=== PATIENT | male | born 1965 | race Caucasian/White ===

== ENCOUNTER 2019-05-21 05:15 | Outpatient (CLI) | payer MEDICARE, MEDICAID | END 2019-05-21 05:16 | disposition critical access hospital (66) | LOC: EMS 05:15 | PROVIDERS: ATTEND Surgery | DX: R10.10 Upper abdominal pain, unspecified (principal); R11.2 Nausea with vomiting, unspecified; K92.1 Melena; R19.7 Diarrhea, unspecified | CPT/HCPCS: A0425; A0427 ==

== ENCOUNTER 2019-05-21 05:32 | Observation (INO) | payer MEDICARE, MEDICAID ==
[2019-05-21] MEDS ORDERED: PROMETHAZINE INJ 25 MG in SODIUM CHLORIDE 0.9% 50 ML IV STA (05:39)
[2019-05-21] MEDS ORDERED: SODIUM CHLORIDE 0.9% 1,000 ML IV ONE (05:39)
[2019-05-21] MEDS ORDERED: HYDROmorphone 1 MG/ML CARPUJECT IVP STA ×2 (05:39→05:48)
--- NOTE | 2019-05-21 05:46 | ED Physician Documentation ---
PD HPI ABD PAIN - Stated complaint Stated Complaint: N/V - Chief complaint Chief Complaint: Abd Pain - History obtained from History obtained from: Patient, EMS - History of Present Illness Timing - onset: Enter time (0000), Today Timing - duration: Hours Timing - details: Abrupt onset, Still present Quality: Cramping, Aching, Sharp, Pain Location: Epigastric Radiation: Upper back Improved by: Other (nothing) Worsened by: Moving, Breathing, Position, Palpation Associated symptoms: Nausea, Vomiting, Diarrhea, Other (diphoresis) Similar symptoms before: Diagnosis (diverticulitis and colitis) Recently seen: Not recently seen - Additional information Additional information: 54-year-old male with a history of colitis with hemorrhage and AAA has developed acute epigastric abdominal pain followed diaphoresis by vomiting and bloody diarrhea. He states he has had this previously twice was admitted here in 2016, needed to stay about 3 days and left AMA. He states that last year he had an episode of this and was seen at [facility] in and out of the emergency department and at [facility]. He was admitted for overnight but had 4 visits to the ED. Both of these prior episodes he has taken some antibiotic associated with this. He has not been in for follow-up colonoscopy. Tonight he had some very sharp pains and called the ambulance with concerns that he was rupturing his AAA. Review of Systems Constitutional: reports: Chills, Myalgias, Fatigue. denies: Fever Eyes: denies: Decreased vision Ears: denies: Ear pain Nose: denies: Rhinorrhea / runny nose, Congestion Throat: denies: Sore throat Cardiac: denies: Chest pain / pressure, Palpitations Respiratory: denies: Dyspnea, Cough GI: reports: Abdominal Pain, Nausea, Vomiting, Diarrhea : denies: Dysuria, Frequency Skin: denies: Rash Musculoskeletal: denies: Neck pain, Back pain Neurologic: denies: Generalized weakness, Focal weakness, Numbness PD PAST MEDICAL HISTORY - Past Medical History Cardiovascular: Hypertension, Other Respiratory: COPD, Emphysema Endocrine/Autoimmune: None GI: GERD, Cholelithiasis : Frequency HEENT: Chronic vision loss Psych: Depression, Anxiety Musculoskeletal: Osteoarthritis, Chronic back pain Derm: Other - Past Surgical History Past Surgical History: Yes General: Cholecystectomy, Colonoscopy, EGD - Present Medications Home Medications: Ambulatory Orders Medication Instructions Recorded Confirmed Omeprazole 40 mg ORAL DAILY 07/11/14 10/18/15 - Allergies Allergies/Adverse Reactions: Allergies Allergy/AdvReac Type Severity Reaction Status Date / Time acetaminophen [From Tylenol] Allergy Cramps Verified 05/21/19 05:40 morphine Allergy Rash Verified 05/21/19 05:40 gabapentin AdvReac Hallucinati Verified 03/20/15 20:32 ons - Social History Does the pt smoke?: Yes Smoking Status: Current every day smoker Does the pt drink ETOH?: No Does the pt have substance abuse?: No - Immunizations Immunizations are current?: No Immunizations: TDAP >10years/unknown, Other immun not current PD ED PE NORMAL - Vitals Vital signs reviewed: Yes (hypertensive marked) - General General: Alert and oriented X 3, Well developed/nourished, Other (54-year-old male appears to be acutely in pain he is bronzed diaphoretic he does have messenger office tone and a flattened affect and is grunting and pain.) - HEENT HEENT: Atraumatic, PERRL, EOMI, Other (no nystagmus ) - Neck Neck: Supple, no meningeal sign, No bony TTP - Cardiac Cardiac: RRR, No murmur - Respiratory Respiratory: No respiratory distress, Clear bilaterally - Abdomen Abdomen: Other (epigastric tenderness no left lower quadrant tenderness or right lower quadrant tenderness. ) - Back Back: No CVA TTP, No spinal TTP - Derm Derm: Normal color, Warm and dry, No rash - Extremities Extremities: No deformity, No edema, No calf tenderness / cord - Neuro Neuro: Alert and oriented X 3, conference director 2-12 intact, No motor deficit, No sensory deficit, Normal speech Eye Opening: Spontaneous Motor: Obeys Commands Verbal: Oriented GCS Score: 15 - Psych Psych: Normal mood, Normal affect Results - Vitals Vitals: Vital Signs - 24 hr 05/21/19 05/21/19 05/21/19 05:34 06:08 06:33 Temperature 36.5 C Heart Rate 90 74 75 Respiratory 18 18 16 Rate Blood Pressure 178/122 H 158/100 H 114/77 O2 Saturation 95 96 88 L Oxygen O2 Source Room air Oxygen Flow Rate 2 - Labs Labs: Laboratory Tests 05/21/19 05/21/19 05/21/19 05:50 05:50 05:50 WBC 15.8 H RBC 5.26 Hgb 16.7 Hct 48.3 MCV 91.8 MCH 31.7 H MCHC 34.6 RDW 13.8 Plt Count 262 MPV 11.2 Neut # (Auto) 12.3 H Lymph # (Auto) 2.1 [place] # (Auto) 0.9 Eos # (Auto) 0.3 Baso # (Auto) 0.1 Absolute Nucleated RBC 0.00 Nucleated RBC % 0.0 Sodium 139 Potassium 4.2 Chloride 110 Carbon Dioxide 19 L Anion Gap 10.0 BUN 16 Creatinine 1.0 Estimated GFR (MDRD) 78 L Glucose 147 H Lactic Acid 2.2 Calcium 9.6 Total Bilirubin 0.4 AST 27 ALT 40 Alkaline Phosphatase 78 Total Protein 7.9 Albumin 4.5 Globulin 3.4 Albumin/Globulin Ratio 1.3 Lipase 60 H Ethyl Alcohol < 5.0 - Rads (name of study) CT ab/pel with Radiology: Prelim report reviewed (Impression: 1. No acute inflammatory obstructive process seen in the abdomen or pelvis. 2 Interval enlargement of a 4.7 cm fusiform infrarenal abdominal aortic aneurysm. This previously measured 3.8 cm in 2016.3 Common iliac artery aneurysm measuring up to 2.2 cm previously 1.6 cm 4 severe atherosclerotic disease of the aorta and branches. 5 Colonic diverticulosis. 6 Chronic urinary bladder diverticula. 7 Previous ch olecystectomy. 8 Emphysema.), EMP read indepedently, See rad report PD MEDICAL DECISION MAKING - ED course Complexity details: reviewed old records, reviewed results, re-evaluated patient, considered differential, d/w patient ED course: 54 y/o male with acute abdominal pain and bloody diarrhea has improvement with dilaudid and phenergan and ativan. His prior episodes have lasted 5 days and required admission to the hospital here and in [place]. He does have a known AAA and both aneurysms have enlarged from his 2016 study. His pain appeared consistent with ishemic pain but was relieved by a single dose of dilaudid. The vascular surgeon in [place] is consulted Dr. Hwang and she indicates it is u nlikely to be related to his aneurysm and recommends he follow up as planned with anticipation of repair at 5.5cm. The rate of growth is less than 0.5cm/yr and there is no extravesation of contrast to suggest a leak. The patient will need bowel rest, IV fluids and antibiotics. His past courses indicate a need to be in the hospital for several days. The patient is amenable to admission here. Departure - Departure Disposition: [facility] DC/[place] Clinical Impression: Hematochezia, Gastroenteritis
[2019-05-21] MEDS ORDERED: IOVERSOL 320 100 ML VIAL IVP ONE ×2 (05:50→06:28)
[2019-05-21] MEDS ORDERED: LORazepam 2 MG/ML VIAL IVP STA (05:56)
[2019-05-21 05:57] LABS: BASOPHILS # (AUTO) 0.1 10^3/uL (0.0-0.1); BASOPHILS % (AUTO) 0.8 %; EOSINOPHILS # (AUTO) 0.3 10^3/uL (0.0-0.7); EOSINOPHILS % (AUTO) 1.8 %; HGB - HEMOGLOBIN 16.7 g/dL (14.0-18.0); LYMPHOCYTES # (AUTO) 2.1 10^3/uL (1.5-3.5); LYMPHOCYTES % (AUTO) 13.1 %; MEAN CORPUSCULAR HEMOGLOBIN 31.7 pg (27.0-31.0); MEAN CORPUSCULAR HGB CONC 34.6 g/dL (32.0-36.0); MEAN CORPUSCULAR VOLUME 91.8 fL (80.0-94.0); MEAN PLATELET VOLUME 11.2 fL (7.4-11.4); MONOCYTES # (AUTO) 0.9 10^3/uL (0.0-1.0); MONOCYTES % (AUTO) 5.4 %; NEUTROPHILS # (AUTO) 12.3 10^3/uL (1.5-6.6); NEUTROPHILS % (AUTO) 78.1 %; PLT - PLATELET COUNT 262 10^3/uL (130-450); RED BLOOD COUNT 5.26 10^6/uL (4.70-6.10); RED CELL DISTRIBUTION WIDTH 13.8 % (12.0-15.0); WHITE BLOOD COUNT 15.8 x10^3/uL (4.8-10.8)
[2019-05-21 06:12] LABS: ALBUMIN 4.5 g/dL (3.2-5.5); ALBUMIN/GLOBULIN RATIO 1.3 (1.0-2.2); ALKALINE PHOSPHATASE 78 IU/L (42-121); ALT ALANINE AMINOTRANSFERASE 40 IU/L (10-60); AST ASPARTATE AMINOTRANSFERASE 27 IU/L (10-42); BILIRUBIN,TOTAL 0.4 mg/dL (0.2-1.0); BUN - BLOOD UREA NITROGEN 16 mg/dL (6-20); CALCIUM 9.6 mg/dL (8.5-10.3); CARBON DIOXIDE - CO2 19 mmol/L (21-32); CHLORIDE 110 mmol/L (101-111); GFR - MDRD 78 (>89); GLUCOSE 147 mg/dL (70-100); LIPASE 60 U/L (22-51); SODIUM 139 mmol/L (135-145); TOTAL PROTEIN 7.9 g/dL (6.7-8.2)
--- NOTE | 2019-05-21 07:00 | CT Report ---
Reason: epigastric pain Procedure Date: 05/21/2019 Accession Number: [id number] / [id number] Procedure: CT - Abdomen/Pelvis W CPT Code: Final Report FULL RESULT: EXAM: CT ABDOMEN AND PELVIS EXAM DATE: 05/21/2019 06:30 AM. CLINICAL HISTORY: Epigastric pain. COMPARISONS: ABDOMEN/PELVIS ANGIO 10/17/2015 4:48 PM. TECHNIQUE: Routine helical CT imaging was performed through the abdomen and pelvis. IV contrast: Yes . Enteric contrast: No . Reconstructions: Coronal and sagittal. In accordance with CT protocol optimization, one or more of the following dose reduction techniques were utilized for this exam: automated exposure control, adjustment of mA and/or KV based on patient size, or use of iterative reconstructive technique. FINDINGS: Lung Bases: Emphysematous changes noted. Liver: Unremarkable. No suspicious masses. Gallbladder/Bile Ducts: Unremarkable post cholecystectomy. Spleen: Unremarkable. Pancreas: Unremarkable. Adrenal Glands: Unremarkable. Kidneys: Unremarkable. No suspicious masses or hydronephrosis. Peritoneal Cavity/Bowel: No bowel obstruction or inflammatory process seen. No free air or significant free fluid. No masses or adenopathy. The appendix is normal. No excessive stool burden. Colonic diverticulosis. Pelvic Organs: Bladder and prostate appear unremarkable with the exception of a couple of bladder diverticula measuring up to 4 cm posteriorly. Vasculature: Severe atherosclerotic disease of the aorta and branches. Interval enlargement of a fusiform infrarenal abdominal aortic aneurysm measuring up to 47 x 46 mm in cross section and extending approximately 9 cm in craniocaudal dimension. Maximum diameter previously was 38 x 38 mm when measured at a similar level. Right common iliac artery aneurysm measures up to 2.2 cm, previously 1.6 cm. Bones: No significant abnormality. Other: None. IMPRESSION: 1. No acute inflammatory or obstructive process seen in the abdomen or pelvis. 2. Interval enlargement of a 4.7 cm fusiform infrarenal abdominal aortic aneurysm. This previously measured 3.8 cm in 2016. 3. Right common iliac artery aneurysm measures up to 2.2 cm, previously 1.6 cm. 4. Severe atherosclerotic disease of the aorta and branches. 5. Colonic diverticulosis. 6. Chronic urinary bladder diverticula. 7. Previous cholecystectomy. 8. Emphysema. RADIA
[2019-05-21] MEDS ORDERED: SODIUM CHLORIDE FLUSH 0.9% 10 ML SYRINGE IVP PRN (08:03)
[2019-05-21] MEDS ORDERED: SODIUM CHLORIDE 0.9% 1,000 ML IV SCH (10:00)
[2019-05-21] MEDS: SODIUM CHLORIDE FLUSH 0.9% 10 ML SYRINGE IVP SCH ×2 (10:55→17:29)
[2019-05-21] MEDS: HYDROmorphone 2 MG/ML VIAL IVP PRN ×4 (10:56→14:12)
[2019-05-21 11:06] LABS: BILIRUBIN,URINE NEGATIVE (NEGATIVE); CLARITY,URINE CLEAR (CLEAR); GLUCOSE, URINE (UA) NEGATIVE (NEGATIVE); KETONES,URINE (UA) NEGATIVE (NEGATIVE); LEUKOCYTE ESTERASE, URINE NEGATIVE (NEGATIVE); NITRITE,URINE NEGATIVE (NEGATIVE); OCCULT BLOOD,URINE NEGATIVE (NEGATIVE); PH,URINE 5.5 PH (5.0-7.5); PROTEIN,URINE NEGATIVE (NEGATIVE); UROBILINOGEN,URINE 0.2 (NORMAL) E.U./dL (NORMAL)
--- NOTE | 2019-05-21 12:39 | HISTORY & PHYSICAL EXAMINATION ---
Chief Complaint - Chief Complaint Chief Complaint: blood diarrhea, rigors, nausea, vomiting, abdominal pain Abdominal Pain HPI - Admitted From Admitted from: ED - History Obtained From Records Reviewed: RN notes reviewed, Old records reviewed History obtained from: Patient Exam limitations: Clinical condition - History of Present Illness Pain/Problem Location Description: LUQ abdominal pain, bilateral low abdominal pain Severity at the worst: Severe Pain Quality: Sharp, Throbbing, Other (waves of pain, LUQ pain travels through his body to his back, worse with deep palpation) Context-Pain started w/: Eating, Movement Timing: Abrupt onset Duration: Days: (1) Improved with: Nothing Worsened by: Eating, Movement, Palpation, Nothing Associated symptoms: Nausea, Vomiting, Feeling faint / dizzy, General Weakness, Other (bloody diarrhea) HPI Comment/Other: Nathan Landaverde is a 54-year old male with a past medical history of hypertension, cardiac stress testing, chronic migraines, sinusitis, current smoker since age 16, marijuana dependence, abdominal aortic aneurysm, COPD with emphysema, arthritis, generalized anxiety disorder, depression and nocturia. The patient was brought in via EMS this morning with complaints of bilateral upper abdominal pain, nausea, vomiting, diarrhea, diaphoresis, and shivering. The patient states that he was in his normal state of health yesterday, then developed acute abdominal pain. He asked if pizza sauce may have discolored his stool, but explained that it seemed like a large amount, then vomited. Labs showed an elevated WBC count of 15.8, GFR of 78, and a negative troponin of less than 2.3. He was afebrile with normal vital signs (although initial blood pressure readings were elevated at 158/100). Imaging was negative for diverticulitis. He continued to have intractable abdominal pain in the LUQ and bilateral lower quadrants with ongoing nausea upon my exam that was unrelieved despite IV diluadid and anti-emetics. He will be admitted for observation as he has had acute diverticulitis in the past. 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 : positive: Benign prostate hypertrophy, Nocturia, Frequency HEENT: positive: Chronic vision loss, Chronic sinusitis, Chronic hearing loss Psych: positive: Depression, Anxiety, Panic attacks, Other (previously suicidal when in his 20's, generalized anxiety disorder) Musculoskeletal: positive: Osteoarthritis, Fatigue, Chronic back pain Derm: positive: None MRSA Hx?: No Other Past Medical History: abdominal aortic aneurysm - Past Surgical History General: positive: Cholecystectomy, Colonoscopy (2015), EGD Ortho: positive: Shoulder arthroplasty (left) Cardiovascular: positive: Other (cardiac stress testing) Other past surgical history: Left hip lipoma removal 4 years ago Social & Family Hx - Living Situation Living Arrangement: At home Living Situation: Alone (Has a dog) - Social History Does the pt smoke?: Yes Smoking Status: Current every day smoker Does the pt drink ETOH?: No Does the pt have substance abuse?: Yes Substance Use and Type: Marijuana Additional Social History: 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 [place] The patient has had close family members in the past several years and suffers from mood disorders, depre ssion, anxiety and is not currently seeing a therapist for these disorders. He denies alcohol use, illicit drug use. He admits to smoking marijuana, tobacco since age 16, although he is trying to quit. He wishes to be a full code. - POLST Patient has POLST: No POLST Status: Full Code - Family History Family History: Mother: , Alzheimer's Disease, Father: , Cancer, Sister: , Brother: Family History Comment/Other: Mother after complications from dementia, father in 2013 after battling lung cancer, sister unexpectedly suspected from broken heart syndrome. Patient has 3 children who live in [place] who are alive and well. Meds/Allgy - Home Medications Home Medications: Ambulatory Orders Medication Instructions Recorded Confirmed Omeprazole 40 mg ORAL DAILY 07/11/14 10/18/15 metFORMIN [Glucophage] 500 mg PO BIDWM #30 tablet 05/21/19 - Allergies Allergies/Adverse Reactions: Allergies Allergy/AdvReac Type Severity Reaction Status Date / Time acetaminophen [From Tylenol] Allergy Cramps Verified 05/21/19 05:40 morphine Allergy Rash Verified 05/21/19 05:40 gabapentin AdvReac Hallucinati Verified 03/20/15 20:32 ons Prior Level of Functionality: Lives independently, has a dog, attends outpatient PT Exam - Vital Signs Reviewed Vital Signs: Yes Vital Signs: Vital Signs x48h Temp Pulse Pulse Resp BP BP Pulse Ox 05/21/19 09:00 36.6 C 77 16 130/75 95 05/21/19 08:27 77 92 H 108/95 H 92 05/21/19 06:33 75 16 114/77 88 L 05/21/19 06:08 74 18 158/100 H 96 05/21/19 05:34 36.5 C 90 18 178/122 H 95 - Physical Exam General Appearance: positive: Alert, Mild distress, Anxious Eyes Bilateral: positive: PERRL, No lid inflammation ENT: positive: Pharynx nml, Dry mucous membranes Neck: positive: Thyroid nml, No JVD Respiratory: positive: Chest non-tender, No respiratory distress, Breath sounds nml Cardiovascular: positive: Regular rate & rhythm, No gallop, Systolic murmur Peripheral Pulses: positive: 2+ Abdomen: positive: Tenderness (LUQ sharp, goes through his body to his back), Guarding, Hepatomegaly, Abnml bowel sounds (hypoactive) Back: positive: Nml inspection Skin: positive: Color nml, No rash, Warm, Dry, Other (tattoos) Extremities: positive: Non-tender, Full ROM, No pedal edema, Joint swelling (Chronic, left shoulder with decreased ROM) Neurologic/Psychiatric: positive: Oriented x3, CN's nml (2-12), Motor nml, Sensation nml, Weakness, Sensory loss, Depressed mood/affect (Mood disorder since 11th grade when his girl friend ) Reflexes: Bicep (R): 3+, Bicep (L): 3+, Ankle (R): 3+, Ankle (L): 3+ Results - Lab Results Lab results reviewed: Yes Fish Bones: 05/21/19 15:59 05/21/19 15:59 Other Lab Results: Lab Results x24hrs 05/21/19 05/21/19 05/21/19 Range/Units 11:00 05:50 05:50 WBC (4.8-10.8) x10^3/uL RBC (4.70-6.10) 10^6/uL Hgb (14.0-18.0) g/dL Hct (42.0-52.0) % MCV (80.0-94.0) fL MCH (27.0-31.0) pg MCHC (32.0-36.0) g/dL RDW (12.0-15.0) % Plt Count (130-450) 10^3/uL MPV (7.4-11.4) fL Neut # (Auto) (1.5-6.6) 10^3/uL Lymph # (Auto) (1.5-3.5) 10^3/uL [place] # (Auto) (0.0-1.0) 10^3/uL Eos # (Auto) (0.0-0.7) 10^3/uL Baso # (Auto) (0.0-0.1) 10^3/uL Absolute Nucleated RBC x10^3/uL Nucleated RBC % /100WBC Sodium 139 (135-145) mmol/L Potassium 4.2 (3.5-5.0) mmol/L Chloride 110 (101-111) mmol/L Carbon Dioxide 19 L (21-32) mmol/L Anion Gap 10.0 (6-13) BUN 16 (6-20) mg/dL Creatinine 1.0 (0.6-1.2) mg/dL Estimated GFR (MDRD) 78 L (>89) Glucose 147 H (70-100) mg/dL Lactic Acid 2.2 (0.5-2.2) mmol/L Calcium 9.6 (8.5-10.3) mg/dL Total Bilirubin 0.4 (0.2-1.0) mg/dL AST 27 (10-42) IU/L ALT 40 (10-60) IU/L Alkaline Phosphatase 78 (42-121) IU/L Total Protein 7.9 (6.7-8.2) g/dL Albumin 4.5 (3.2-5.5) g/dL Globulin 3.4 (2.1-4.2) g/dL Albumin/Globulin Ratio 1.3 (1.0-2.2) Lipase 60 H (22-51) U/L Urine Color YELLOW Urine Clarity CLEAR (CLEAR) Urine pH 5.5 (5.0-7.5) PH Ur Specific [place] 1.015 (1.002-1.030) Urine Protein NEGATIVE (NEGATIVE) mg/dL Urine Glucose (UA) NEGATIVE (NEGATIVE) mg/dL Urine Ketones NEGATIVE (NEGATIVE) mg/dL Urine Occult Blood NEGATIVE (NEGATIVE) Urine Nitrite NEGATIVE (NEGATIVE) Urine Bilirubin NEGATIVE (NEGATIVE) Urine Urobilinogen 0.2 (NORMAL) (NORMAL) E.U./dL Ur Leukocyte Esterase NEGATIVE (NEGATIVE) Ur Microscopic Review NOT INDICATED Urine Culture Comments NOT INDICATED Ethyl Alcohol < 5.0 mg/dL 05/21/19 Range/Units 05:50 WBC 15.8 H (4.8-10.8) x10^3/uL RBC 5.26 (4.70-6.10) 10^6/uL Hgb 16.7 (14.0-18.0) g/dL Hct 48.3 (42.0-52.0) % MCV 91.8 (80.0-94.0) fL MCH 31.7 H (27.0-31.0) pg MCHC 34.6 (32.0-36.0) g/dL RDW 13.8 (12.0-15.0) % Plt Count 262 (130-450) 10^3/uL MPV 11.2 (7.4-11.4) fL Neut # (Auto) 12.3 H (1.5-6.6) 10^3/uL Lymph # (Auto) 2.1 (1.5-3.5) 10^3/uL [place] # (Auto) 0.9 (0.0-1.0) 10^3/uL Eos # (Auto) 0.3 (0.0-0.7) 10^3/uL Baso # (Auto) 0.1 (0.0-0.1) 10^3/uL Absolute Nucleated RBC 0.00 x10^3/uL Nucleated RBC % 0.0 /100WBC Sodium (135-145) mmol/L Potassium (3.5-5.0) mmol/L Chloride (101-111) mmol/L Carbon Dioxide (21-32) mmol/L Anion Gap (6-13) BUN (6-20) mg/dL Creatinine (0.6-1.2) mg/dL Estimated GFR (MDRD) (>89) Glucose (70-100) mg/dL Lactic Acid (0.5-2.2) mmol/L Calcium (8.5-10.3) mg/dL Total Bilirubin (0.2-1.0) mg/dL AST (10-42) IU/L ALT (10-60) IU/L Alkaline Phosphatase (42-121) IU/L Total Protein (6.7-8.2) g/dL Albumin (3.2-5.5) g/dL Globulin (2.1-4.2) g/dL Albumin/Globulin Ratio (1.0-2.2) Lipase (22-51) U/L Urine Color Urine Clarity (CLEAR) Urine pH (5.0-7.5) PH Ur Specific [place] (1.002-1.030) Urine Protein (NEGATIVE) mg/dL Urine Glucose (UA) (NEGATIVE) mg/dL Urine Ketones (NEGATIVE) mg/dL Urine Occult Blood (NEGATIVE) Urine Nitrite (NEGATIVE) Urine Bilirubin (NEGATIVE) Urine Urobilinogen (NORMAL) E.U./dL Ur Leukocyte Esterase (NEGATIVE) Ur Microscopic Review Urine Culture Comments Ethyl Alcohol mg/dL - Diagnostic Imaging Results Diagnostic Imaging Results: positive: Final report reviewed Impression/Plan - Problem List Problem List: Acute abdominal pain -LLQ & LUQ pain which comes in waves, sharp, shooting, and ongoing despite NPO -Prior history of diverticulosis, prior admissions for diverticulitis -Elevated WBC count of 15.8, now normal at 9.7 -CRP was normal at 7.5 -No fevers, but reports of rigors, nausea, vomiting, and bloody diarrhea prior to arriving in the ED -Differential diagnoses include: IBS, colorectal cancer, appendicitis, infectious colitis, ischemic colitis, or nephrolithiasis -Single view abdominal x-ray to evaluate for free air, or evidence of diverticulitis (inflammation) -Patient has known noncompliance, so would likely return to the ED if not admitted for at least 1 night of stay -Consider starting IV antibiotics if the patient develops fevers or WBC count -May consult general surgery if warranted Bloody diarrhea -Patient questions if eating pizza sauce may have caused his stool to appear red -NO further episodes since arriving on the nursing floor Intractable nausea and vomiting -Started at home, continued in the ED despite anti-emetics -Continue NPO, consider clear liquids later tonight Diverticulosis -Known history, per records review -No evidence on imaging of acute diverticulitis New onset type 2 diabetes mellitus -Patient states he has a prominent family history of DM -Hemoglobin A1C was elevated at 6.3% -Nutrition consult for counseling while in the hospital -Likely start Metformin upon discharge Abdominal aortic aneurysm (AAA) 3.0 cm to 5.5 cm in diameter in male -Current measurement of 4.7, up from 3.8 previously -Patient states he gets "freaked out" when he feels like he can hear it in his abdomen, shooting down his legs -Vascular surgery was called by ED physician, who does not recommend surgical repair at this time Nocturia -Patient states he gets up 4-6 times per night -Start flomax in the AM, prescribe for home use Leukocytosis -Elevated WBC count of 15.8, now normal at 9.7 Hypertension -No antihypertensives at home -Starting lisinopril at 2.5 mg if appropriate for new DM diagnosis History of traumatic brain injury -Patient claims that he fell off a ladder a few years back, striking his head -Short term memory loss since that time -Monitor mental status Arthritis -Multiple joints with chronic pain -Recently had his left shoulder surgery, continues with outpatient PT Migraines -Nearly every day, contributes to anxiety disorder -Treat with pain medication, monitor Tobacco dependence -Life long smoker since age 16 -Patient states he is "trying to stop smoking" -Nicotine patch only as needed -Suggest pulmonary rehab on discharge Marijuana dependence -Patient states he uses this for his arthritis pain and chronic anxiety Generalized anxiety disorder -Patient states that after his girlfriend in high school unexpectedly , he has had an anxiety disorder -Also has had family pass away lately -Does not have a therapist -Recommend establishing a therapist upon discharge Core Measures - Anticipated LOS I expect patient to be DC'd or transferred within 96 hours.: Yes - DVT/VTE - Prophylaxis VTE/DVT Device ordered at admit?: Yes VTE/DVT Prophylaxis med ordered at admit?: Yes - Stroke - Rehab Assessment Rehab services assessment to be ordered?: No Not Ordered - Medical Reason: Contraindicated - AMI - Statin at Admit Aspirin Prescribed on Admit: No Not Ordered - Medical Reason: Contraindicated
[2019-05-21] MEDS ORDERED: NICOTINE 14 MG PATCH TOP PRN (14:42)
[2019-05-21] MEDS ORDERED: ONDANSETRON 4 MG/2 ML VIAL IVP PRN (14:43)
[2019-05-21] MEDS ORDERED: PANTOPRAZOLE 40 MG VIAL IVP SCH (15:00)
--- NOTE | 2019-05-21 15:53 | XRAY Report ---
Reason: diverticulitis Procedure Date: 05/21/2019 Accession Number: [id number] / [id number] Procedure: XR - Abdomen 1 View X-Ray CPT Code: 08029 Final Report FULL RESULT: EXAM: ABDOMEN RADIOGRAPHY EXAM DATE: 05/21/2019 03:20 PM. CLINICAL HISTORY: Diverticulitis. COMPARISON: ABDOMEN/PELVIS W/ 05/21/2019 6:21 AM. TECHNIQUE: 1 view. FINDINGS: Bowel Gas Pattern: Within normal limits. No dilated loops. Other: Surgical clips in right upper quadrant, suggestive of post cholecystectomy. Excreted contrast is seen within the urinary bladder in the pelvis. Two small bladder diverticula noted containing excreted contrast. IMPRESSION: No suggestion of bowel obstruction or pneumoperitoneum. RADIA
[2019-05-21 16:06] LABS: BASOPHILS # (AUTO) 0.1 10^3/uL (0.0-0.1); BASOPHILS % (AUTO) 0.8 %; EOSINOPHILS # (AUTO) 0.4 10^3/uL (0.0-0.7); EOSINOPHILS % (AUTO) 4.2 %; HGB - HEMOGLOBIN 15.2 g/dL (14.0-18.0); LYMPHOCYTES # (AUTO) 3.2 10^3/uL (1.5-3.5); LYMPHOCYTES % (AUTO) 32.6 %; MEAN CORPUSCULAR HEMOGLOBIN 31.2 pg (27.0-31.0); MEAN CORPUSCULAR HGB CONC 33.3 g/dL (32.0-36.0); MEAN CORPUSCULAR VOLUME 93.6 fL (80.0-94.0); MEAN PLATELET VOLUME 11.4 fL (7.4-11.4); MONOCYTES # (AUTO) 0.8 10^3/uL (0.0-1.0); MONOCYTES % (AUTO) 7.8 %; NEUTROPHILS # (AUTO) 5.3 10^3/uL (1.5-6.6); NEUTROPHILS % (AUTO) 54.1 %; PLT - PLATELET COUNT 229 10^3/uL (130-450); RED BLOOD COUNT 4.87 10^6/uL (4.70-6.10); RED CELL DISTRIBUTION WIDTH 14.1 % (12.0-15.0); WHITE BLOOD COUNT 9.7 x10^3/uL (4.8-10.8)
[2019-05-21 16:29] LABS: CALCIUM 8.6 mg/dL (8.5-10.3); CRP HIGH SENSITIVITY 7.5 mg/L
[2019-05-21 16:33] LABS: HB2 TOTAL 15.6 g/dL; HEMOGLOBIN A1C 0.71 g/dL; HEMOGLOBIN A1C % 6.3 % (4.6-6.2)
--- NOTE | 2019-05-21 19:52 | DISCHARGE SUMMARY ---
Discharge Summary Admit Date: 05/21/19 Discharge Date: 05/21/19 Condition at Discharge: Stable Discharge Disposition: 01 Home, Self Care Discharge Facility Name: [facility] - DIAGNOSES Admission Diagnoses: 1. Acute abdominal pain 2. Bloody diarrhea 3. Intractable nausea and vomiting 4. Diverticulosis 5. New onset Type 2 Diabetes mellitus 6. Abdominal aortic aneurysm (AAA) 3.0 cm to 5.5 cm in diameter in male 7. Nocturia 8. Hypertension 9. History of traumatic brain injury 10. Arthritis 11. Migraines 12. Tobacco dependence 13. Marijuana dependence 14. Generalized anxiety disorder Discharge Diagnoses with Status of Each Condition: 1. Acute abdominal pain: Resolved 2. Bloody diarrhea: Resolved 3. Intractable nausea and vomiting: Resolved 4. Diverticulosis: History of. 5. New onset Type 2 Diabetes mellitus: On going 6. Abdominal aortic aneurysm (AAA) 3.0 cm to 5.5 cm in diameter in male: Currently 4.7cm from 3.8 previously 7. Nocturia: Chronic 8. Hypertension: Chronic 9. History of traumatic brain injury 10. Arthritis: Chronic 11. Migraines: Chronic 12. Tobacco dependence: Chronic 13. Marijuana dependence: Chronic 14. Generalized anxiety disorder: Chronic - HPI History of Present Illness: Per H&P note: Nathan Landaverde is a 54-year old male with a past medical history of hypertension, cardiac stress testing, chronic migraines, sinusitis, current smoker since age 16, marijuana dependence, abdominal aortic aneurysm, COPD with emphysema, arthritis, generalized anxiety disorder, depression and nocturia. The patient was brought in via EMS this morning with complaints of bilateral upper abdominal pain, nausea, vomiting, diarrhea, diaphoresis, and shivering. The patient states that he was in his normal state of health yesterday, then developed acute abdominal pain. He asked if pizza sauce may have discolored his stool, but explained that it seemed like a large amount, then vomited. Labs showed an elevated WBC count of 15.8, GFR of 78, and a negative troponin of less than 2.3. He was afebrile with normal vital signs (although initial blood pressure readings were elevated at 158/100). Imaging was negative for diverticulitis. He continued to have intractable abdominal pain in the LUQ and b ilateral lower quadrants with ongoing nausea upon my exam that was unrelieved despite IV diluadid and anti-emetics. He will be admitted for observation as he has had acute diverticulitis in the past. - HOSPITAL COURSE Hospital Course: Patient's hemoglobin remained steady. He did not experience any more bloody diarrhea or abdominal pain HgA1C was 6.3. As a result he was discharged home with metformin 500mg po bid to take with meal. He has an appointment with his primary care physician on 05/22/19 and is expected to keep the appointment. It is expected that his PCP will assume management of his diabetes. He has had 3 colonoscopies since age 49 for blood in stool. Polyps were found. He is due for a GI follow up. It is expected that his PCP will set up follow up. - ALLERGIES Allergies/Adverse Reactions: Allergies Allergy/AdvReac Type Severity Reaction Status Date / Time acetaminophen [From Tylenol] Allergy Cramps Verified 05/21/19 05:40 morphine Allergy Rash Verified 05/21/19 05:40 gabapentin AdvReac Hallucinati Verified 03/20/15 20:32 ons - MEDICATIONS Home Medications: Ambulatory Orders Medication Instructions Recorded Confirmed Omeprazole 40 mg ORAL DAILY 07/11/14 10/18/15 metFORMIN [Glucophage] 500 mg PO BIDWM #30 tablet 05/21/19 Tamsulosin [Flomax] 0.4 mg PO DAILY #30 05/22/19 - PHYSICAL EXAM AT DISCHARGE General Appearance: positive: No acute distress, Alert Eyes Bilateral: positive: Normal inspection, PERRL, EOMI ENT: positive: ENT inspection nml, No signs of dehydration Neck: positive: Nml inspection, No JVD, Trachea midline Respiratory: positive: Chest non-tender, No respiratory distress, Breath sounds nml. negative: Wheezes, Rales, Rhonchi Cardiovascular: positive: Regular rate & rhythm, No murmur Abdomen: positive: Non-tender, No organomegaly, Nml bowel sounds, No distention. negative: Guarding, Rebound Skin: positive: Color nml, No rash, Warm Extremities: positive: Non-tender, Full ROM, Nml appearance Neurologic/Psychiatric: positive: Oriented x3, CN's nml (2-12), Motor nml, Sensation nml, Mood/affect nml - LABS Result Diagrams: 05/21/19 15:59 05/21/19 15:59 - FOLLOW UP Follow Up: With PCP on 05/22/2019 - TIME SPENT Time Spent in Discharge (Minutes): 31
--- NOTE | 2019-05-21 19:56 | Discharge Plan ---
Discharge Plan Problem Reviewed?: Yes Disposition: Home, Self Care Condition: Stable Prescriptions: metFORMIN [Glucophage] 500 mg PO BIDWM #30 tablet Diet: Diabetic Activity Restrictions: Activity as Tolerated Shower Restrictions: No Driving Restrictions: No Health Concerns: 1. Acute Abdominal Pain: Resolved. 2. Blood Diarrhea: Resolved. 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 Type 2 Diabetes Mellitus. New Onset. Metformin ordered. Follow up with primary care doctor to continue management and for diabetic education Abdominal Aortic Aneurysm: Currently 4.7cm. Continued monitoring per vascular surgery. No intervention at the moment. Plan of Treatment: 1. Acute Abdominal Pain: Resolved. 2. Blood Diarrhea: Resolved. 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 Type 2 Diabetes Mellitus. New Onset. Metformin ordered. Follow up with primary care doctor to continue management and for diabetic education Abdominal Aortic Aneurysm: Currently 4.7cm. Continued monitoring per vascular surgery. No intervention at the moment. Care Goals: 1. Acute Abdominal Pain: Resolved. 2. Blood Diarrhea: Resolved. 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 Type 2 Diabetes Mellitus. New Onset. Metformin ordered. Follow up with primary care doctor to continue management and for diabetic education Abdominal Aortic Aneurysm: Currently 4.7cm. Continued monitoring per vascular surgery. No intervention at the moment. Assessment: I discussed with patient the potential of recurrence. He reports that he is scheduled to see his primary doctor in the morning and will follow up. He is also due for a colonoscopy. Patient expressed understanding. No Smoking: If you smoke, Please STOP! Call for help. Follow-up with: DONNA KELLEY DO [Primary Care Provider] -
[2019-05-21 20:23] VITALS: BP 150/85
[2019-05-22] MEDS ORDERED: PANTOPRAZOLE 40 MG TABLET PO SCH (07:00)
[2019-05-22] MEDS ORDERED: TAMSULOSIN 0.4 MG CAPSULE PO SCH (09:00)
--- NOTE | 2019-05-22 16:10 | MISCELLANEOUS PROVIDER NOTE ---
Miscellaneous Provider Note - - Note: The patient was called at home today regarding his symptoms and to ask what pharmacy to send Flomax to, but the patient prefers to see his PCP on 05/23/2019 to address that. He states that he is fairing well, although has not eaten much due to mild nausea. He denies any further symptoms or bloody diarrhea. TORIN Vargas 05/22/2019 @ 4:09 PM
== END 2019-05-21 20:40 | disposition home or self-care (01) ==
LOC: EDUNIT# → ED 05:32 → MS2 08:03
PROVIDERS: ADMIT Nurse Practitioner; ATTEND Nurse Practitioner
DX: R10.9 Unspecified abdominal pain (principal); K92.1 Melena; R11.2 Nausea with vomiting, unspecified; Z87.19 Personal history of other diseases of the digestive system; E11.9 Type 2 diabetes mellitus without complications; I71.4 Abdominal aortic aneurysm, without rupture; N40.1 Benign prostatic hyperplasia with lower urinary tract symptoms; R35.1 Nocturia; I10 Essential (primary) hypertension; Z87.820 Personal history of traumatic brain injury; R41.3 Other amnesia; D72.829 Elevated white blood cell count, unspecified; M89.49 Other hypertrophic osteoarthropathy, multiple sites; F17.210 Nicotine dependence, cigarettes, uncomplicated; G43.809 Other migraine, not intractable, without status migrainosus; F41.9 Anxiety disorder, unspecified; F12.20 Cannabis dependence, uncomplicated; J43.9 Emphysema, unspecified; F32.9 Major depressive disorder, single episode, unspecified
CPT/HCPCS: 36415; 74018; 74177; 80048; 80053; 81003; 83036; 83605; 83690; 84443; 84484; 85025; 86141; 96361; 96365; 96375; 96376; 99285; 99406; G0378; J1170; J2060; J7040; Q9967; 80320; 81001; 87086

== ENCOUNTER 2019-08-03 07:43 | Outpatient (CLI) | payer MEDICARE, MEDICAID | END 2019-08-03 07:44 | disposition critical access hospital (66) | LOC: EMS 07:43 | PROVIDERS: ATTEND Surgery | DX: R10.9 Unspecified abdominal pain (principal) | CPT/HCPCS: A0425; A0427 ==

== ENCOUNTER 2019-08-03 08:00 | Emergency (ER) | payer MEDICARE, MEDICAID ==
[2019-08-03] MEDS ORDERED: HYDROmorphone 1 MG/ML SYRINGE IVP STA (08:11)
[2019-08-03] MEDS ORDERED: SODIUM CHLORIDE 0.9% 1,000 ML IV ONE (08:11)
--- NOTE | 2019-08-03 08:13 | ED Physician Documentation ---
PD HPI ABD PAIN - Stated complaint Stated Complaint: ABD PX - Chief complaint Chief Complaint: Abd Pain - History obtained from History obtained from: Patient - History of Present Illness Timing - onset: Today Timing - duration: Hours (4.5) Timing - details: Gradual onset Pain level now: 8 Quality: Pain Location: Epigastric, LUQ Worsened by: No: Breathing Associated symptoms: Nausea, Vomiting. No: Fever, Diarrhea, Constipation, Dysuria Similar symptoms before: Diagnosis (Diverticulitis, pancreatitis and known AAA) - Additional information Additional information: Is a 54-year-old man who presents with the onset of epigastric abdominal pain proximately 0330 This morning that has been gradually getting worse until it is now an 8 out of 10. He did not take anything at home for the pain but he called EMS and they did give him fentanyl and Zofran in route. He still complaining of 8 out of 10 pain. He started vomiting at home last was about 1/2-hour before he called 911. Denies any diarrhea or prior abdominal surgeries. No fever. Patient has a known AAA that was last monitored May of this year in [place]. He does report pain radiating down his legs but says that that is chronic from his back. He denies any difficulty with urination. He has had some nasal congestion related to pollens but has not felt ill. No sore throat no coughing. Denies use of alcohol for the past 20 years but does admit to smoking marijuana. Patient is on disability due to his back. Review of Systems Constitutional: denies: Fever Eyes: reports: Other (No acute visual changes) Ears: denies: Ear pain Nose: reports: Congestion Throat: denies: Sore throat Cardiac: denies: Chest pain / pressure Respiratory: denies: Dyspnea, Cough GI: reports: Abdominal Pain, Abdominal Swelling, Vomiting. 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 : Benign prostate hypertrophy, Nocturia, Frequency HEENT: Chronic vision loss, Chronic sinusitis, Chronic hearing loss Psych: Depression, Anxiety, Panic attacks, Other (previously suicidal when in his 20's, generalized anxiety disorder) Musculoskeletal: Osteoarthritis, Fatigue, Chronic back pain Derm: None - Past Surgical History Past Surgical History: Yes General: Cholecystectomy, Colonoscopy (2015), EGD Ortho: Shoulder arthroplasty (left) Cardiovascular: Other (cardiac stress testing) - Present Medications Home Medications: Ambulatory Orders Medication Instructions Recorded Confirmed Omeprazole 40 mg ORAL DAILY 07/11/14 10/18/15 metFORMIN [Glucophage] 500 mg PO BIDWM #30 tablet 05/21/19 Tamsulosin [Flomax] 0.4 mg PO DAILY #30 05/22/19 - Allergies Allergies/Adverse Reactions: Allergies Allergy/AdvReac Type Severity Reaction Status Date / Time acetaminophen [From Tylenol] Allergy Cramps Verified 08/03/19 08:09 morphine Allergy Rash Verified 08/03/19 08:09 gabapentin AdvReac Hallucinati Verified 08/03/19 08:09 ons - Social History Does the pt smoke?: Yes Smoking Status: Current every day smoker Does the pt drink ETOH?: No Does the pt have substance abuse?: Yes - Immunizations Immunizations are current?: No Immunizations: TDAP >10years/unknown, Other immun not current - POLST Patient has POLST: No POLST Status: Full Code PD ED PE NORMAL - Vitals Vital signs reviewed: Yes - General General: Alert and oriented X 3, Well developed/nourished, Other (Laying on his back on the exam stretcher gripping at his stomach writhing back and forth and groaning in pain.) - HEENT HEENT: PERRL, Moist mucous membranes - Cardiac Cardiac: RRR, No murmur, Strong equal pulses - Respiratory Respiratory: No respiratory distress - Abdomen Abdomen: Soft, Other (Decreased bowel sounds. There is tenderness and some guarding in the left lower quadrant. I do not feel a definite pulsatile mass.) - Derm Derm: Other (Diaphoretic) - Extremities Extremities: No edema - Neuro Neuro: Alert and oriented X 3, lvn 2-12 intact, No motor deficit, No sensory deficit, Normal speech Results - Vitals Vitals: Vital Signs - 24 hr 08/03/19 08/03/19 08/03/19 08:04 08:10 09:11 Temperature 36.5 C Heart Rate 102 H 99 71 Respiratory 18 22 16 Rate Blood Pressure 163/109 H 108/76 O2 Saturation 95 98 99 08/03/19 08/03/19 10:23 10:52 Temperature 36.7 C Heart Rate 70 72 Respiratory 16 16 Rate Blood Pressure 110/74 120/75 O2 Saturation 99 99 Oxygen O2 Source Room air - Labs Labs: Laboratory Tests 08/03/19 08/03/19 08/03/19 08:17 08:17 10:10 WBC 12.3 H RBC 5.07 Hgb 16.3 Hct 47.2 MCV 93.1 MCH 32.1 H MCHC 34.5 RDW 13.6 Plt Count 255 MPV 11.6 H Neut # (Auto) 8.6 H Lymph # (Auto) 2.1 [place] # (Auto) 0.9 Eos # (Auto) 0.5 Baso # (Auto) 0.1 Absolute Nucleated RBC 0.00 Nucleated RBC % 0.0 Sodium 136 Potassium 4.3 Chloride 105 Carbon Dioxide 22 Anion Gap 9.0 BUN 18 Creatinine 1.1 Estimated GFR (MDRD) 69 L Glucose 112 H Calcium 9.1 Total Bilirubin 0.5 AST 19 ALT 21 Alkaline Phosphatase 66 Total Protein 7.5 Albumin 4.3 Globulin 3.2 Albumin/Globulin Ratio 1.3 Lipase 57 H Urine Color YELLOW Urine Clarity CLEAR Urine pH 5.5 Ur Specific [place] 1.025 Urine Protein NEGATIVE Urine Glucose (UA) NEGATIVE Urine Ketones NEGATIVE Urine Occult Blood NEGATIVE Urine Nitrite NEGATIVE Urine Bilirubin NEGATIVE Urine Urobilinogen 0.2 (NORMAL) Ur Leukocyte Esterase NEGATIVE Ur Microscopic Review NOT INDICATED Urine Culture Comments NOT INDICATED PD MEDICAL DECISION MAKING - ED course Complexity details: reviewed old records ( ) ED course: 1017: Nurse approached me regarding patient having more pain. Toradol ordered. Patient reports to me not only the increase in the pain but also more nausea. Have also ordered Phenergan. 1145: Patient reports that his pain is significantly improved it still a 4 out of 10 but he says he lives in chronic pain in his abdomen and this is actually better than his normal pain. No evidence of acute surgical abdomen and he is ready to be discharged. Departure - Departure Disposition: 01 Home, Self Care Clinical Impression: Abdominal pain Qualifiers: Abdominal location: epigastric Qualified Code(s): R10.13 - Epigastric pain Condition: Good Instructions: ED Abdominal Pain Unkn Cause Follow-Up: DONNA KELLEY DO [Primary Care Provider] - Comments: Eat a mild diet today. Follow-up with your primary care provider about the chronic abdominal pain or return if her symptoms are worsening.
[2019-08-03] MEDS ORDERED: IOVERSOL 320 100 ML VIAL IVP ONE ×2 (08:24→09:06)
[2019-08-03 08:29] LABS: BASOPHILS # (AUTO) 0.1 10^3/uL (0.0-0.1); BASOPHILS % (AUTO) 1.1 %; EOSINOPHILS # (AUTO) 0.5 10^3/uL (0.0-0.7); EOSINOPHILS % (AUTO) 4.1 %; HGB - HEMOGLOBIN 16.3 g/dL (14.0-18.0); LYMPHOCYTES # (AUTO) 2.1 10^3/uL (1.5-3.5); LYMPHOCYTES % (AUTO) 17.1 %; MEAN CORPUSCULAR HEMOGLOBIN 32.1 pg (27.0-31.0); MEAN CORPUSCULAR HGB CONC 34.5 g/dL (32.0-36.0); MEAN CORPUSCULAR VOLUME 93.1 fL (80.0-94.0); MEAN PLATELET VOLUME 11.6 fL (7.4-11.4); MONOCYTES # (AUTO) 0.9 10^3/uL (0.0-1.0); MONOCYTES % (AUTO) 7.2 %; NEUTROPHILS # (AUTO) 8.6 10^3/uL (1.5-6.6); NEUTROPHILS % (AUTO) 69.9 %; PLT - PLATELET COUNT 255 10^3/uL (130-450); RED BLOOD COUNT 5.07 10^6/uL (4.70-6.10); RED CELL DISTRIBUTION WIDTH 13.6 % (12.0-15.0); WHITE BLOOD COUNT 12.3 x10^3/uL (4.8-10.8)
[2019-08-03 08:39] LABS: ALBUMIN 4.3 g/dL (3.2-5.5); ALBUMIN/GLOBULIN RATIO 1.3 (1.0-2.2); BILIRUBIN,TOTAL 0.5 mg/dL (0.2-1.0); CALCIUM 9.1 mg/dL (8.5-10.3); CREATININE 1.1 mg/dL (0.6-1.2); TOTAL PROTEIN 7.5 g/dL (6.7-8.2)
--- NOTE | 2019-08-03 09:19 | CT Report ---
Reason: abd pain Procedure Date: 08/03/2019 Accession Number: [id number] / [id number] Procedure: CT - Abdomen/Pelvis W CPT Code: Final Report FULL RESULT: EXAM: CT ABDOMEN AND PELVIS EXAM DATE: 08/03/2019 09:05 AM. CLINICAL HISTORY: Abd pain. COMPARISONS: ABDOMEN/PELVIS W/ 05/21/2019 6:21 AM. TECHNIQUE: Routine helical CT imaging was performed through the abdomen and pelvis. IV contrast: OPTIRAY 320. Enteric contrast: No. Reconstructions: Coronal and sagittal. In accordance with CT protocol optimization, one or more of the following dose reduction techniques were utilized for this exam: automated exposure control, adjustment of mA and/or KV based on patient size, or use of iterative reconstructive technique. FINDINGS: Lung Bases: Subpleural basilar opacities likely reflect dependent atelectasis. No other consolidation. No pleural effusions. Liver: Normal. No masses. Gallbladder/Bile Ducts: Surgically absent gallbladder. No biliary dilation. Spleen: Normal. Pancreas: Normal. Adrenal Glands: Normal. Kidneys: Normal. No masses or hydronephrosis. Peritoneal Cavity/Bowel: Unremarkable stomach. Normal caliber small bowel loops without signs of wall thickening or hyperemia. Normal appendix. Sigmoid colonic diverticulosis without evidence for acute diverticulitis. No pathologically enlarged intraperitoneal or retroperitoneal lymph nodes. No intra-abdominal fluid collections. No pneumoperitoneum or ascites. Pelvic Organs: Urinary bladder diverticula again seen. Unremarkable prostate and seminal vesicles. No enlarged pelvic lymph nodes. Vasculature: Stable 4.7 cm infrarenal abdominal aortic aneurysm with mural thrombus and additional stable right common iliac artery ectasia to 2.1 cm. No rupture. Bones: No significant abnormality. Other: Unchanged hypoattenuating lesion measuring 3 cm in the superior aspect of the right scrotum. IMPRESSION: 1. No acute abnormality seen in the abdomen or pelvis by CT. No findings to explain acute abdominal pain. 2. Stable abdominal aortic aneurysm without rupture. 3. Sigmoid colonic diverticulosis without evidence for acute diverticulitis. 4. Stable 3 cm hypoattenuating rounded lesion in the superior aspect of the right scrotum. Nonemergent scrotal ultrasound could be obtained for further evaluation as indicated. [facility]
[2019-08-03 10:13] LABS: BILIRUBIN,URINE NEGATIVE (NEGATIVE); GLUCOSE, URINE (UA) NEGATIVE (NEGATIVE); KETONES,URINE (UA) NEGATIVE (NEGATIVE); LEUKOCYTE ESTERASE, URINE NEGATIVE (NEGATIVE); NITRITE,URINE NEGATIVE (NEGATIVE); OCCULT BLOOD,URINE NEGATIVE (NEGATIVE); PH,URINE 5.5 PH (5.0-7.5); PROTEIN,URINE NEGATIVE (NEGATIVE); UROBILINOGEN,URINE 0.2 (NORMAL) E.U./dL (NORMAL)
[2019-08-03] MEDS ORDERED: KETOROLAC 30 MG/ML VIAL IVP STA (10:13)
[2019-08-03 10:16] LABS: CLARITY,URINE CLEAR (CLEAR)
[2019-08-03] MEDS ORDERED: PROMETHAZINE INJ 25 MG in SODIUM CHLORIDE 0.9% 50 ML IV STA (10:37)
[2019-08-03 12:06] VITALS: BP 112/74
== END 2019-08-03 12:06 | disposition home or self-care (01) ==
LOC: EDUNIT# → ED 08:00
DX: R10.13 Epigastric pain (principal); I10 Essential (primary) hypertension; F17.210 Nicotine dependence, cigarettes, uncomplicated
CPT/HCPCS: 36415; 74177; 80053; 81003; 83690; 85025; 96374; 96375; 99284; J1170; J7040; Q9967; 81001; 87086

== ENCOUNTER 2019-09-29 07:37 | Outpatient (CLI) | payer MEDICARE, MEDICAID | END 2019-09-29 07:38 | disposition critical access hospital (66) | LOC: EMS 07:37 | PROVIDERS: ATTEND Surgery | DX: R10.9 Unspecified abdominal pain (principal); R19.7 Diarrhea, unspecified | CPT/HCPCS: A0425; A0427 ==

== ENCOUNTER 2019-09-29 07:55 | Emergency (ER) | payer MEDICARE, MEDICAID ==
[2019-09-29] MEDS ORDERED: ONDANSETRON 4 MG/2 ML VIAL IVP STA ×2 (08:09→12:22)
[2019-09-29] MEDS ORDERED: HYDROmorphone 1 MG/ML CARPUJECT IVP STA ×4 (08:09→12:31)
[2019-09-29] MEDS ORDERED: KETOROLAC 30 MG/ML VIAL IVP STA (08:09)
[2019-09-29] MEDS ORDERED: SODIUM CHLORIDE 0.9% 1,000 ML IV STA (08:09)
--- NOTE | 2019-09-29 08:12 | ED Physician Documentation ---
PD HPI ABD PAIN - Stated complaint Stated Complaint: ABD PX - Chief complaint Chief Complaint: Abd Pain - History obtained from History obtained from: Patient, EMS - History of Present Illness Timing - onset: How many days ago (3) Timing - duration: Days (3) Timing - details: Gradual onset, Still present Quality: Cramping, Sharp, Pain Location: Suprapubic, LLQ Improved by: Laying still Worsened by: Moving, Position, Palpation Associated symptoms: Nausea, Vomiting, Diarrhea, Loss of appetite Similar symptoms before: Diagnosis (diverticulitis) Recently seen: Not recently seen - Additional information Additional information: 54-year-old male with a prior history of diverticulitis has developed abdominal pain 3 days ago consistent with what is had previously he is also developed a bit of nausea vomiting and diarrhea. He felt yesterday evening things were starting to get better and then overnight much worse he is writhing in pain now and is brought to the hospital by ambulance.He denies a fever he has had a cough for the past 4 months that is been off and on as well sinus congestion. He has not had shortness of breath. And he has not had fever Review of Systems Constitutional: denies: Fever Eyes: denies: Decreased vision Ears: reports: Loss of hearing, Ear pain Nose: reports: Rhinorrhea / runny nose, Congestion Throat: denies: Sore throat Cardiac: denies: Chest pain / pressure, Palpitations Respiratory: reports: Cough. 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: None : Benign prostate hypertrophy, Nocturia, Frequency HEENT: Chronic vision loss, Chronic sinusitis, Chronic hearing loss Psych: Depression, Anxiety, Panic attacks, Other Musculoskeletal: Osteoarthritis, Fatigue, Chronic back pain Derm: None - Past Surgical History Past Surgical History: Yes General: Cholecystectomy, Colonoscopy, EGD Ortho: Shoulder arthroplasty Cardiovascular: Other - Present Medications Home Medications: Ambulatory Orders Medication Instructions Recorded Confirmed Omeprazole 40 mg ORAL DAILY 07/11/14 10/18/15 metFORMIN [Glucophage] 500 mg PO BIDWM #30 tablet 05/21/19 Tamsulosin [Flomax] 0.4 mg PO DAILY #30 05/22/19 Ciprofloxacin HCl [Cipro] 500 mg PO BID #20 tablet 09/29/19 Oxycodone HCl/Acetaminophen 1 - 2 each PO Q6H PRN #14 tablet 09/29/19 [Percocet 5-325 mg Tablet] metroNIDAZOLE [Flagyl] 500 mg PO BID #20 tablet 09/29/19 - Allergies Allergies/Adverse Reactions: Allergies Allergy/AdvReac Type Severity Reaction Status Date / Time acetaminophen [From Tylenol] Allergy Cramps Verified 08/03/19 08:09 morphine Allergy Rash Verified 09/29/19 08:05 gabapentin AdvReac Hallucinati Verified 09/29/19 08:05 ons - Social History Does the pt smoke?: Yes Smoking Status: Current every day smoker Does the pt drink ETOH?: No Does the pt have substance abuse?: Yes - Immunizations Immunizations are current?: No Immunizations: TDAP >10years/unknown, Other immun not current - POLST Patient has POLST: No POLST Status: Full Code PD ED PE NORMAL - Vitals Vital signs reviewed: Yes (Tachycardic and hypertensive) - General General: Alert and oriented X 3, Well developed/nourished, Other (Patient appears uncomfortable writhing in the bed clutching his lower abdomen) - HEENT HEENT: Atraumatic, PERRL, EOMI - Neck Neck: Supple, no meningeal sign, No bony TTP - Cardiac Cardiac: No murmur, Other (Tachycardic) - Respiratory Respiratory: No respiratory distress, Clear bilaterally - Abdomen Abdomen: Soft, Other (There is borborygmi present and there is generalized tenderness to the suprapubic area worse in the left lower quadrant there is some guarding there is not referred tenderness.) - Back Back: No CVA TTP, No spinal TTP - Derm Derm: Normal color, Warm and dry, No rash - Extremities Extremities: No deformity, No edema - Neuro Neuro: Alert and oriented X 3, 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, No motor deficit, No sensory deficit, Normal speech Eye Opening: Spontaneous Motor: Obeys Commands Verbal: Oriented GCS Score: 15 - Psych Psych: Normal mood, Normal affect Results - Vitals Vitals: Vital Signs - 24 hr 09/29/19 09/29/19 09/29/19 07:59 08:04 08:34 Temperature 36.8 C Heart Rate 110 H 100 104 H Respiratory 24 16 18 Rate Blood Pressure 144/118 H 136/72 H 132/74 H O2 Saturation 95 98 97 09/29/19 09/29/19 09/29/19 10:34 11:30 12:00 Temperature 36.9 C Heart Rate 96 96 61 Respiratory 20 18 Rate Blood Pressure 132/84 H 124/78 133/86 H O2 Saturation 99 99 Oxygen O2 Source Room air - Labs Labs: Laboratory Tests 09/29/19 09/29/19 09/29/19 08:45 08:45 08:45 WBC 10.3 RBC 4.68 L Hgb 15.0 Hct 43.1 MCV 92.1 MCH 32.1 H MCHC 34.8 RDW 13.2 Plt Count 245 MPV 11.0 Neut # (Auto) 7.3 H Lymph # (Auto) 1.7 [place] # (Auto) 0.8 Eos # (Auto) 0.4 Baso # (Auto) 0.1 Absolute Nucleated RBC 0.00 Nucleated RBC % 0.0 Sodium 137 Potassium 3.8 Chloride 109 Carbon Dioxide 23 Anion Gap 5.0 L BUN 15 Creatinine 1.1 Estimated GFR (MDRD) 69 L Glucose 108 H Lactic Acid 0.7 Calcium 8.6 Total Bilirubin 0.8 AST 14 ALT 15 Alkaline Phosphatase 67 Total Protein 6.3 L Albumin 3.7 Globulin 2.6 Albumin/Globulin Ratio 1.4 Lipase 34 Urine Color Urine Clarity Urine pH Ur Specific [place] Urine Protein Urine Glucose (UA) Urine Ketones Urine Occult Blood Urine Nitrite Urine Bilirubin Urine Urobilinogen Ur Leukocyte Esterase Urine RBC Urine WBC Ur Squamous Epith Cells Urine Bacteria Ur Microscopic Review Urine Culture Comments 09/29/19 10:00 WBC RBC Hgb Hct MCV MCH MCHC RDW Plt Count MPV Neut # (Auto) Lymph # (Auto) [place] # (Auto) Eos # (Auto) Baso # (Auto) Absolute Nucleated RBC Nucleated RBC % Sodium Potassium Chloride Carbon Dioxide Anion Gap BUN Creatinine Estimated GFR (MDRD) Glucose Lactic Acid Calcium Total Bilirubin AST ALT Alkaline Phosphatase Total Protein Albumin Globulin Albumin/Globulin Ratio Lipase Urine Color DARK YELLOW Urine Clarity CLEAR Urine pH 6.0 Ur Specific [place] 1.025 Urine Protein NEGATIVE Urine Glucose (UA) NEGATIVE Urine Ketones NEGATIVE Urine Occult Blood NEGATIVE Urine Nitrite NEGATIVE Urine Bilirubin NEGATIVE Urine Urobilinogen 0.2 (NORMAL) Ur Leukocyte Esterase SMALL H Urine RBC 0-5 Urine WBC 4-5 Ur Squamous Epith Cells RARE Squamous Urine Bacteria Few Ur Microscopic Review INDICATED Urine Culture Comments INDICATED - Rads (name of study) CT ab/pel w Radiology: Prelim report reviewed (Impression: 1. Under-distention of the colon limits assessment, although fairly diffuse colonic wall thickening again appears to be present. Some of this has a somewhat fatty appearance change in the mid to distal colon, and there may be some mild new thickening more proximally within the colon. This suggests that there may be acute on chronic changes of colitis in the proper clinical setting. No bowel obstruction. 2. No bowel obstruction. No acute focal inflammatory change. 3. Otherwise, findings again noted as described above.), EMP read indepedently, See rad report PD MEDICAL DECISION MAKING - ED course Complexity details: reviewed old records, reviewed results, re-evaluated patient, considered differential, d/w patient ED course: 54-year-old male with a history of colitis and diverticulitis as well as infrarenal aortic aneurysm has acute lower abdominal pain and this appears on his CT scan to be due to a focal area of colitis in the lower colon. He has had similar presentation previously. He has improved with use of Cipro and Flagyl. He is a nondrinker. He does have aortic aneurysm and iliac aneurysm these appear stable on his CT scan. Today the patient requires multiple doses of pain medication for pain control. He does have a low pain threshold. He has a normal white blood cell count is administered both Cipro and Flagyl here in the emergency department will place him on these as an outpatient and will provide some pain medication. His aneurysms are stable. Departure - Departure Disposition: 01 Home, Self Care Clinical Impression: Colitis Condition: Stable Instructions: ED Gastroenteritis Bacterial Follow-Up: NAHED DAVIS MD [Physician No Access] - Prescriptions: Ciprofloxacin HCl [Cipro] 500 mg PO BID #20 tablet metroNIDAZOLE [Flagyl] 500 mg PO BID #20 tablet Oxycodone HCl/Acetaminophen [Percocet 5-325 mg Tablet] 1 - 2 each PO Q6H PRN #14 tablet PRN Reason: pain
[2019-09-29] MEDS ORDERED: IOVERSOL 320 100 ML VIAL IVP ONE ×2 (08:22→09:59)
[2019-09-29 08:55] LABS: BASOPHILS # (AUTO) 0.1 10^3/uL (0.0-0.1); BASOPHILS % (AUTO) 0.8 %; EOSINOPHILS # (AUTO) 0.4 10^3/uL (0.0-0.7); EOSINOPHILS % (AUTO) 4.2 %; LYMPHOCYTES # (AUTO) 1.7 10^3/uL (1.5-3.5); LYMPHOCYTES % (AUTO) 16.3 %; MEAN CORPUSCULAR HEMOGLOBIN 32.1 pg (27.0-31.0); MEAN CORPUSCULAR HGB CONC 34.8 g/dL (32.0-36.0); MEAN CORPUSCULAR VOLUME 92.1 fL (80.0-94.0); MONOCYTES # (AUTO) 0.8 10^3/uL (0.0-1.0); MONOCYTES % (AUTO) 7.6 %; NEUTROPHILS # (AUTO) 7.3 10^3/uL (1.5-6.6); NEUTROPHILS % (AUTO) 70.7 %; PLT - PLATELET COUNT 245 10^3/uL (130-450); RED BLOOD COUNT 4.68 10^6/uL (4.70-6.10); RED CELL DISTRIBUTION WIDTH 13.2 % (12.0-15.0); WHITE BLOOD COUNT 10.3 x10^3/uL (4.8-10.8)
[2019-09-29 09:05] LABS: ALBUMIN 3.7 g/dL (3.2-5.5); ALBUMIN/GLOBULIN RATIO 1.4 (1.0-2.2); BILIRUBIN,TOTAL 0.8 mg/dL (0.2-1.0); CALCIUM 8.6 mg/dL (8.5-10.3); CREATININE 1.1 mg/dL (0.6-1.2); TOTAL PROTEIN 6.3 g/dL (6.7-8.2)
[2019-09-29 10:16] LABS: BILIRUBIN,URINE NEGATIVE (NEGATIVE); GLUCOSE, URINE (UA) NEGATIVE (NEGATIVE); KETONES,URINE (UA) NEGATIVE (NEGATIVE); LEUKOCYTE ESTERASE, URINE SMALL (NEGATIVE); NITRITE,URINE NEGATIVE (NEGATIVE); OCCULT BLOOD,URINE NEGATIVE (NEGATIVE); PROTEIN,URINE NEGATIVE (NEGATIVE); UROBILINOGEN,URINE 0.2 (NORMAL) E.U./dL (NORMAL)
[2019-09-29 10:37] LABS: CLARITY,URINE CLEAR (CLEAR)
[2019-09-29 10:52] LABS: BACTERIA,URINE Few /HPF (None Seen); RBC,URINE 0-5 /HPF (0-5); SQUAMOUS EPITHELIAL CELL,UR RARE Squamous (<= Few)
--- NOTE | 2019-09-29 11:02 | CT Report ---
Reason: LLQ pain Procedure Date: 09/29/2019 Accession Number: [id number] / [id number] Procedure: CT - Abdomen/Pelvis W CPT Code: Final Report FULL RESULT: EXAM: CT ABDOMEN AND PELVIS EXAM DATE: 09/29/2019 09:58 AM. CLINICAL HISTORY: LLQ pain. COMPARISONS: ABDOMEN/PELVIS W/ 08/03/2019 8:54 AM. TECHNIQUE: Routine helical CT imaging was performed through the abdomen and pelvis. IV contrast: 100mL OPTIRAY 320. Enteric contrast: No. Reconstructions: Coronal and sagittal. In accordance with CT protocol optimization, one or more of the following dose reduction techniques were utilized for this exam: automated exposure control, adjustment of mA and/or KV based on patient size, or use of iterative reconstructive technique. FINDINGS: Lung Bases: Unremarkable. Liver: Mildly hypoattenuating appearance diffusely, suggesting mild steatosis. No discrete mass or ductal dilation. Gallbladder/Bile Ducts: Prior cholecystectomy. No biliary ductal dilation identified. Spleen: Unremarkable. Pancreas: Unremarkable. Adrenal Glands: Unremarkable. Kidneys: Symmetric enhancement. No hydronephrosis or mass on either side. Peritoneal Cavity/Bowel: Proximal duodenal diverticulum. Otherwise small bowel loops appear unremarkable. No bowel obstruction. No acute focal inflammatory change. No discrete collection. No bulky adenopathy. Diffuse colonic wall thickening with a somewhat fatty appearance and also noted on the prior study in the descending and rectosigmoid region. Possible mild new thickening more proximally within the colon. The colon is underdistended, which limits assessment. A few scattered fluid levels within the proximal colon. Appendix appears unremarkable. Pelvic Organs: The bladder and visualized pelvic organs appear stable, including a few bladder diverticula. Vasculature: Infrarenal abdominal aortic aneurysm again noted without significant change, measuring approximate 4.9 x 4.6 cm cross-sectional dimension (previously 4.9 x 4.6 cm). Right common iliac artery aneurysm also again noted measuring approximately 2.3 cm diameter, which is stable. The atherosclerotic aortic plaque and calcification also appears unchanged. Bones: Stable. No new suspicious bony lesions. Other: None. IMPRESSION: 1. Under distention of the colon limits assessment, although fairly diffuse colonic wall thickening again appears to be present. Some of this has somewhat fatty appearing change in the mid to distal colon, and there may be some mild new thickening more proximally within the colon. This suggests that there may be acute on chronic changes of colitis in the proper clinical setting. No bowel obstruction. 2. No bowel obstruction. No acute focal inflammatory change. 3. Otherwise, findings again noted as described above. RADIA
[2019-09-29] MEDS ORDERED: metroNIDAZOLE 500 MG/100 ML 500 MG/100 ML BAG IV ONE (11:16)
[2019-09-29] MEDS ORDERED: CIPROFLOXACIN 400 MG/200 ML 400 MG/200 ML BAG IV STA (11:16)
[2019-09-29 12:46] VITALS: BP 131/96
== END 2019-09-29 13:32 | disposition home or self-care (01) ==
LOC: EDUNIT# → ED 07:55
DX: K52.9 Noninfective gastroenteritis and colitis, unspecified (principal); I10 Essential (primary) hypertension; F17.200 Nicotine dependence, unspecified, uncomplicated
CPT/HCPCS: 36415; 74177; 80053; 81001; 83605; 83690; 85025; 87040; 87086; 96361; 96365; 96368; 96375; 96376; 99284; J1170; Q9967; 81003

== ENCOUNTER 2019-11-29 03:23 | Outpatient (CLI) | payer MEDICARE, MEDICAID | END 2019-11-29 03:24 | disposition EMS.NT | LOC: EMS 03:23 | PROVIDERS: ATTEND Surgery | DX: M54.2 Cervicalgia (principal) ==

== ENCOUNTER 2020-03-06 11:40 | Outpatient (CLI) | payer MEDICARE, MEDICAID | END 2020-03-06 11:41 | disposition critical access hospital (66) | LOC: EMS 11:40 | PROVIDERS: ATTEND Surgery | DX: R10.9 Unspecified abdominal pain (principal); R11.2 Nausea with vomiting, unspecified | CPT/HCPCS: A0425; A0427 ==

== ENCOUNTER 2020-03-06 12:03 | Emergency (ER) | payer MEDICARE, MEDICAID ==
[2020-03-06] MEDS ORDERED: SODIUM CHLORIDE 0.9% 1,000 ML IV STA (12:28)
[2020-03-06] MEDS ORDERED: HALOPERIDOL 5 MG/ML VIAL IVP STA (12:28)
[2020-03-06] MEDS ORDERED: diphenhydrAMINE INJ 50 MG/ML VIAL IVP STA (12:28)
--- NOTE | 2020-03-06 12:31 | ED Physician Documentation ---
PD HPI ABD PAIN - Stated complaint Stated Complaint: ABD PX/NAUSEA - Chief complaint Chief Complaint: Abd Pain - History obtained from History obtained from: Patient - History of Present Illness Timing - onset: Last night Timing - duration: Days (1) Timing - details: Gradual onset Pain level max: 8 Pain level now: 8 Quality: Aching, Pain Location: All over / everywhere Radiation: Chest Improved by: Vomiting Worsened by: Eating Associated symptoms: Nausea, Vomiting. No: Fever, Hematemesis, Diarrhea, Constipation, Melena, Hematochezia, Dysuria Similar symptoms before: Diagnosis (states has had this several times in the past, possible colitis) - Additional information Additional information: 54-year-old male with abdominal pain, nausea, vomiting. Uses marijuana daily, states that he smokes 3-4 bowls per day. No recent travel. No recent antibiotics. No changes to his medications. Review of Systems Constitutional: denies: Fever, Chills Skin: denies: Rash Musculoskeletal: denies: Neck pain, Back pain Neurologic: denies: Headache PD PAST MEDICAL HISTORY - Past Medical History Cardiovascular: Hypertension, High cholesterol, Angina Respiratory: COPD, Emphysema Neuro: Head injury, Headaches, Migraines, Peripheral neuropathy Endocrine/Autoimmune: None GI: GERD, GI bleed, Hiatal hernia, Diverticulitis, Cholelithiasis SUBSTANCE ABUSE NURSE: None : Benign prostate hypertrophy, Nocturia, Frequency HEENT: Chronic vision loss, Chronic sinusitis, Chronic hearing loss Psych: Depression, Anxiety, Panic attacks, Other Musculoskeletal: Osteoarthritis, Fatigue, Chronic back pain Derm: None - Past Surgical History Past Surgical History: Yes General: Cholecystectomy, Colonoscopy, EGD Ortho: Shoulder arthroplasty Cardiovascular: Other - Present Medications Home Medications: Ambulatory Orders Medication Instructions Recorded Confirmed Omeprazole 40 mg ORAL DAILY 07/11/14 10/18/15 metFORMIN [Glucophage] 500 mg PO BIDWM #30 tablet 05/21/19 Tamsulosin [Flomax] 0.4 mg PO DAILY #30 05/22/19 Ciprofloxacin HCl [Cipro] 500 mg PO BID #20 tablet 09/29/19 Oxycodone HCl/Acetaminophen 1 - 2 each PO Q6H PRN #14 tablet 09/29/19 [Percocet 5-325 mg Tablet] metroNIDAZOLE [Flagyl] 500 mg PO BID #20 tablet 09/29/19 Promethazine [Phenergan] 25 mg PO Q6H PRN #10 tab 03/06/20 - Allergies Allergies/Adverse Reactions: Allergies Allergy/AdvReac Type Severity Reaction Status Date / Time acetaminophen [From Tylenol] Allergy Cramps Verified 08/03/19 08:09 morphine Allergy Rash Verified 09/29/19 08:05 gabapentin AdvReac Hallucinati Verified 09/29/19 08:05 ons - Social History Does the pt smoke?: Yes Smoking Status: Current every day smoker Does the pt drink ETOH?: No Does the pt have substance abuse?: Yes Substance Use and Type: Marijuana - Immunizations Immunizations are current?: Yes Immunizations: TDAP >10years/unknown, Other immun not current - POLST Patient has POLST: No POLST Status: Full Code PD ED PE NORMAL - Vitals Vital signs reviewed: Yes - General General: Alert and oriented X 3, No acute distress, Well developed/nourished - HEENT HEENT: PERRL, Moist mucous membranes - Neck Neck: Supple, no meningeal sign - Cardiac Cardiac: RRR, Strong equal pulses - Respiratory Respiratory: No respiratory distress, Clear bilaterally - Abdomen Abdomen: Soft, Non distended, Other (mild diffuse TTP, no peritoneal signs) - Derm Derm: Warm and dry - Extremities Extremities: No edema - Neuro Neuro: Alert and oriented X 3 - Psych Psych: Normal mood, Normal affect Results - Vitals Vitals: Vital Signs - 24 hr 03/06/20 03/06/20 03/06/20 12:06 12:14 13:40 Temperature 35.9 C L Heart Rate 72 71 73 Respiratory 15 17 15 Rate Blood Pressure 169/74 H 129/93 H 108/76 O2 Saturation 99 99 94 03/06/20 15:07 Temperature Heart Rate 68 Respiratory 18 Rate Blood Pressure 117/77 O2 Saturation 94 Oxygen O2 Source Room air - EKG (time done) 1214 Rate: Rate (enter#) (63) Rhythm: NSR [place]: Normal Intervals: Normal [place] QRS: Normal Ischemia: Normal ST segments - Labs Labs: Laboratory Tests 03/06/20 03/06/20 03/06/20 12:30 12:30 13:55 WBC 13.2 H RBC 5.13 Hgb 16.3 Hct 47.1 MCV 91.8 MCH 31.8 H MCHC 34.6 RDW 13.4 Plt Count 243 MPV 11.4 Neut # (Auto) 9.0 H Lymph # (Auto) 2.9 [place] # (Auto) 0.7 Eos # (Auto) 0.5 Baso # (Auto) 0.1 Absolute Nucleated RBC 0.00 Nucleated RBC % 0.0 Sodium 135 Potassium 3.6 Chloride 100 L Carbon Dioxide 22 Anion Gap 13.0 BUN 16 Creatinine 1.2 Estimated GFR (MDRD) 63 L Glucose 174 H Calcium 9.4 Total Bilirubin 0.5 AST 21 ALT 27 Alkaline Phosphatase 70 Total Protein 7.2 Albumin 4.3 Globulin 2.9 Albumin/Globulin Ratio 1.5 Lipase 51 Urine Color YELLOW Urine Clarity CLEAR Urine pH 6.0 Ur Specific [place] 1.020 Urine Protein NEGATIVE Urine Glucose (UA) NEGATIVE Urine Ketones NEGATIVE Urine Occult Blood NEGATIVE Urine Nitrite NEGATIVE Urine Bilirubin NEGATIVE Urine Urobilinogen 0.2 (NORMAL) Ur Leukocyte Esterase NEGATIVE Ur Microscopic Review NOT INDICATED Urine Culture Comments NOT INDICATED Urine Opiates Screen NEGATIVE Ur Oxycodone Screen NEGATIVE Urine Methadone Screen NEGATIVE Ur Propoxyphene Screen NEGATIVE Ur Barbiturates Screen NEGATIVE Ur Tricyclics Screen NEGATIVE Ur Phencyclidine Scrn NEGATIVE Ur Amphetamine Screen NEGATIVE U Methamphetamines Scrn NEGATIVE U Benzodiazepines Scrn NEGATIVE Urine Cocaine Screen NEGATIVE U Cannabinoids Screen NEGATIVE PD MEDICAL DECISION MAKING - ED course Complexity details: reviewed results, re-evaluated patient, considered differential, d/w patient ED course: Symptoms resolved with IV Haldol and Benadryl. Possible cannabinoid induced hyperemesis? We will have him follow-up with his doctor for further care. Abdomen soft, nontender nondistended on serial exam. No fevers. No evidence of AAA rupture. No evidence of diverticulitis, perforation. We will have him follow-up with his doctor for further care. Has had multiple CTs in the past. Patient counseled regarding signs and symptoms for which I believe and urgent re-evaluation would be necessary. Patient with good understanding of and agreement to plan and is comfortable going home at this time This document was made in part using voice recognition software. While efforts are made to proofread this document, sound alike and grammatical errors may occur. Departure - Departure Disposition: 01 Home, Self Care Clinical Impression: Cannabinoid hyperemesis syndrome, Acute abdominal pain Condition: Good Instructions: ED Nausea Vomiting Follow-Up: Your,doctor in 1 week [Other] Prescriptions: Promethazine [Phenergan] 25 mg PO Q6H PRN #10 tab PRN Reason: Nausea / Vomiting Comments: Your symptoms might be due to cannabinoid induced hyperemesis. Follow up with your doctor for further care. Return if you worsen. You should try to sop smoking marijuana and see if your symptoms improve. Hot showers often help as well.
[2020-03-06 12:38] LABS: BASOPHILS # (AUTO) 0.1 10^3/uL (0.0-0.1); EOSINOPHILS # (AUTO) 0.5 10^3/uL (0.0-0.7); EOSINOPHILS % (AUTO) 3.5 %; HGB - HEMOGLOBIN 16.3 g/dL (14.0-18.0); LYMPHOCYTES # (AUTO) 2.9 10^3/uL (1.5-3.5); LYMPHOCYTES % (AUTO) 21.8 %; MEAN CORPUSCULAR HEMOGLOBIN 31.8 pg (27.0-31.0); MEAN CORPUSCULAR HGB CONC 34.6 g/dL (32.0-36.0); MEAN CORPUSCULAR VOLUME 91.8 fL (80.0-94.0); MEAN PLATELET VOLUME 11.4 fL (7.4-11.4); MONOCYTES # (AUTO) 0.7 10^3/uL (0.0-1.0); NEUTROPHILS % (AUTO) 67.9 %; PLT - PLATELET COUNT 243 10^3/uL (130-450); RED BLOOD COUNT 5.13 10^6/uL (4.70-6.10); RED CELL DISTRIBUTION WIDTH 13.4 % (12.0-15.0); WHITE BLOOD COUNT 13.2 x10^3/uL (4.8-10.8)
[2020-03-06 12:47] LABS: ALBUMIN 4.3 g/dL (3.2-5.5); ALBUMIN/GLOBULIN RATIO 1.5 (1.0-2.2); BILIRUBIN,TOTAL 0.5 mg/dL (0.2-1.0); CALCIUM 9.4 mg/dL (8.5-10.3); CREATININE 1.2 mg/dL (0.6-1.2); TOTAL PROTEIN 7.2 g/dL (6.7-8.2)
[2020-03-06 13:58] LABS: MUDS CUTOFF CONCENTRATIONS CUTOFF CONC BELOW:
[2020-03-06 14:00] LABS: BILIRUBIN,URINE NEGATIVE (NEGATIVE); GLUCOSE, URINE (UA) NEGATIVE (NEGATIVE); KETONES,URINE (UA) NEGATIVE (NEGATIVE); LEUKOCYTE ESTERASE, URINE NEGATIVE (NEGATIVE); NITRITE,URINE NEGATIVE (NEGATIVE); OCCULT BLOOD,URINE NEGATIVE (NEGATIVE); PROTEIN,URINE NEGATIVE (NEGATIVE); UROBILINOGEN,URINE 0.2 (NORMAL) E.U./dL (NORMAL)
[2020-03-06 14:01] LABS: CLARITY,URINE CLEAR (CLEAR)
[2020-03-06 14:12] LABS: AMPHETAMINE SCREEN,URINE NEGATIVE (NEGATIVE); BENZODIAZEPINES SCREEN, URINE NEGATIVE (NEGATIVE); COCAINE SCREEN URINE NEGATIVE (NEGATIVE); METHADONE SCREEN, URINE NEGATIVE (NEGATIVE); METHAMPHETAMINES SCREEN, URINE NEGATIVE (NEGATIVE); OPIATE SCREEN, URINE NEGATIVE (NEGATIVE); OXYCODONE SCREEN, URINE NEGATIVE (NEGATIVE); PROPOXYPHENE SCREEN, URINE NEGATIVE (NEGATIVE); TRICYCLIC ANTIDEPRESSANT,URINE NEGATIVE (NEGATIVE)
[2020-03-06 15:08] VITALS: BP 117/77
== END 2020-03-06 15:28 | disposition home or self-care (01) ==
LOC: EDUNIT# → ED 12:03
DX: R10.84 Generalized abdominal pain (principal); R11.2 Nausea with vomiting, unspecified; I10 Essential (primary) hypertension; J43.9 Emphysema, unspecified; F17.200 Nicotine dependence, unspecified, uncomplicated
CPT/HCPCS: 36415; 80053; 80306; 81003; 83690; 85025; 93005; 96374; 96375; 99283; 99284; J1200; 81001; 87086

== ENCOUNTER 2020-04-12 08:13 | Outpatient (CLI) | payer MEDICARE, MEDICAID | END 2020-04-12 08:14 | disposition critical access hospital (66) | LOC: EMS 08:13 | PROVIDERS: ATTEND Surgery | DX: R10.32 Left lower quadrant pain (principal); R11.2 Nausea with vomiting, unspecified | CPT/HCPCS: A0425; A0427 ==

== ENCOUNTER 2020-04-12 08:31 | Emergency (ER) | payer MEDICARE, MEDICAID ==
[2020-04-12] MEDS ORDERED: KETOROLAC 15 MG/ML VIAL IVP STA (08:40)
[2020-04-12] MEDS ORDERED: SODIUM CHLORIDE 0.9% 1,000 ML IV STA (08:40)
[2020-04-12] MEDS ORDERED: HYDROmorphone 1 MG/ML CARPUJECT IVP STA ×2 (08:40→09:50)
--- NOTE | 2020-04-12 08:50 | ED Physician Documentation ---
History of Present Illness - Stated complaint Stated Complaint: ABD PX/N/V - History obtained from History obtained from: Patient - Additonal information Additional information: Patient comes emergency department complaining of left lower quadrant abdominal pain and nausea and vomiting. He states he woke up around 5 with nausea and began to vomit. He states that about 1 hour later, he began to notice was worse with movement. Patient states that he was feeling fine yesterday when he went to bed. He denies fevers or chills. No mass in his groin. No testicular pain. No testicular/scrotal swelling.No cough, chest pain, shortness of breath. He states that he has not had any sick contacts. Pt states that his vomitus consisted of bile and the food that he ate last night.No headache. No dysuria. No back pain. The patient has a history of diverticulitis, pancreatitis, and an AAA, which has been stable. Review of Systems Ten Systems: 10 systems reviewed and negative Constitutional: reports: Reviewed and negative Eyes: reports: Reviewed and negative Ears: reports: Reviewed and negative Nose: reports: Reviewed and negative Throat: reports: Reviewed and negative Cardiac: reports: Reviewed and negative Respiratory: reports: Reviewed and negative GI: reports: Abdominal Pain, Nausea, Vomiting : reports: Reviewed and negative Skin: reports: Reviewed and negative Musculoskeletal: reports: Reviewed and negative Neurologic: reports: Reviewed and negative Psychiatric: reports: Reviewed and negative Endocrine: reports: Reviewed and negative Immunocompromised: reports: Reviewed and negative PD PAST MEDICAL HISTORY - Past Medical History Cardiovascular: Hypertension, High cholesterol, Angina Respiratory: COPD, Emphysema Neuro: Head injury, Headaches, Migraines, Peripheral neuropathy Endocrine/Autoimmune: None GI: GERD, GI bleed, Hiatal hernia, Diverticulitis, Cholelithiasis 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 : Benign prostate hypertrophy, Nocturia, Frequency HEENT: Chronic vision loss, Chronic sinusitis, Chronic hearing loss Psych: Depression, Anxiety, Panic attacks, Other Musculoskeletal: Osteoarthritis, Fatigue, Chronic back pain Derm: None - Past Surgical History Past Surgical History: Yes General: Cholecystectomy, Colonoscopy, EGD Ortho: Shoulder arthroplasty Cardiovascular: Other - Present Medications Home Medications: Ambulatory Orders Medication Instructions Recorded Confirmed Omeprazole 40 mg ORAL DAILY 07/11/14 10/18/15 metFORMIN [Glucophage] 500 mg PO BIDWM #30 tablet 05/21/19 Tamsulosin [Flomax] 0.4 mg PO DAILY #30 05/22/19 Ciprofloxacin HCl [Cipro] 500 mg PO BID #20 tablet 09/29/19 Oxycodone HCl/Acetaminophen 1 - 2 each PO Q6H PRN #14 tablet 09/29/19 [Percocet 5-325 mg Tablet] metroNIDAZOLE [Flagyl] 500 mg PO BID #20 tablet 09/29/19 Promethazine [Phenergan] 25 mg PO Q6H PRN #10 tab 03/06/20 HYDROcod/ACETAM 5/325 [[place] 5/325] 1 - 2 ea PO Q6H PRN #12 tablet 04/12/20 Ondansetron Odt [Zofran Odt] 4 mg TL Q6H PRN #10 tablet 04/12/20 - Allergies Allergies/Adverse Reactions: Allergies Allergy/AdvReac Type Severity Reaction Status Date / Time acetaminophen [From Tylenol] Allergy Cramps Verified 04/12/20 08:43 morphine Allergy Rash Verified 04/12/20 08:43 gabapentin AdvReac Hallucinati Verified 04/12/20 08:43 ons "all cilins" Allergy Rash Uncoded 04/12/20 08:44 - Social History Does the pt smoke?: Yes Smoking Status: Current every day smoker Does the pt drink ETOH?: No Does the pt have substance abuse?: Yes - Immunizations Immunizations are current?: Yes Immunizations: TDAP >10years/unknown, Other immun not current - POLST Patient has POLST: No POLST Status: Full Code PD ED PE NORMAL - Vitals Vital signs reviewed: Yes - General General: Alert and oriented X 3, Other (Visibly in pain and clutching his left lower quadrant.) - HEENT HEENT: PERRL - Neck Neck: Supple, no meningeal sign - Cardiac Cardiac: RRR, No murmur - Respiratory Respiratory: Clear bilaterally - Abdomen Abdomen: Soft, Non distended, Other (Moderate tenderness inferior left lower quadrant no rebound or guarding. No mass.) - Male Male : Other (No tenderness or swelling of the left testicle. Grossly/externally normal. No skin changes. No mass. No deformity. No mass in left inguinal area.) - Derm Derm: Warm and dry - Extremities Extremities: No deformity - Neuro Neuro: Alert and oriented X 3 - Psych Psych: Normal mood, Normal affect Results - Vitals Vitals: Oxygen O2 Source Room air - Labs Labs: Laboratory Tests 04/12/20 04/12/20 04/12/20 08:58 08:58 10:45 WBC 12.8 H RBC 5.10 Hgb 16.3 Hct 47.3 MCV 92.7 MCH 32.0 H MCHC 34.5 RDW 13.5 Plt Count 222 MPV 11.4 Neut # (Auto) 10.7 H Lymph # (Auto) 1.2 L [place] # (Auto) 0.6 Eos # (Auto) 0.2 Baso # (Auto) 0.1 Absolute Nucleated RBC 0.00 Nucleated RBC % 0.0 Sodium 140 Potassium 4.3 Chloride 104 Carbon Dioxide 22 Anion Gap 14.0 H BUN 15 Creatinine 1.2 Estimated GFR (MDRD) 63 L Glucose 120 H Calcium 9.2 Total Bilirubin 0.5 AST 17 ALT 26 Alkaline Phosphatase 62 Total Protein 7.0 Albumin 4.0 Globulin 3.0 Albumin/Globulin Ratio 1.3 Lipase 27 Urine Color YELLOW Urine Clarity CLEAR Urine pH 5.5 Ur Specific [place] 1.015 Urine Protein NEGATIVE Urine Glucose (UA) NEGATIVE Urine Ketones NEGATIVE Urine Occult Blood NEGATIVE Urine Nitrite NEGATIVE Urine Bilirubin NEGATIVE Urine Urobilinogen 0.2 (NORMAL) Ur Leukocyte Esterase NEGATIVE Ur Microscopic Review NOT INDICATED Urine Culture Comments NOT INDICATED - Rads (name of study) CT abd/pelvis Radiology: Final report received, EMP read indepedently, See rad report (NAD; AAA stable; stable intestinal wall thickening.) PD MEDICAL DECISION MAKING - ED course Complexity details: reviewed results, re-evaluated patient, considered differential, d/w patient ED course: The pt was worked up with labs and CT scan of the abdomen and pelvis, And treated symptomatically with IV fluids and Dilaudid. He had already received Zofran and 50 mcg of fentanyl en route. The pt's work-up was unremarkable. His AAA was found to be unchanged since the pt's last CT earlier this year, and no other acute findings were noted. The pt was feeling much better after symptomatic treatment. He does not have any complaints or findings on exam to indicate testicular torsion. I have d/w pt that it is possible that he pulled one of his abdominal muscles or soft tissue connections while vomiting, as the vomiting started about an hour before the pain. I have advised the pt against heavy lifting or other strenuous work until he is feeling better. We have discussed the need for follow-up, as well as the usual indications for return. Departure - Departure Disposition: 01 Home, Self Care Clinical Impression: Nausea & vomiting Qualifiers: Vomiting type: bilious vomiting Qualified Code(s): R11.14 - Bilious vomiting Inguinal strain Qualifiers: Encounter type: initial encounter Laterality: left Qualified Code(s): S76.212A - Strain of adductor muscle, fascia and tendon of left thigh, initial encounter Condition: Stable Instructions: ED Strain Groin, ED Nausea Vomiting Prescriptions: HYDROcod/ACETAM 5/325 [[place] 5/325] 1 - 2 ea PO Q6H PRN #12 tablet PRN Reason: Pain Ondansetron Odt [Zofran Odt] 4 mg TL Q6H PRN #10 tablet PRN Reason: Nausea / Vomiting Comments: Your tests look good. There is no evidence of any serious condition causing your pain. Most likely, you have pulled/strained one of the muscular tendinous connections in your pelvic area/groin, which has caused the pain you are having today. Please take the nausea medicine as needed, and do not do any heavy lifting or twisting in the area. You may use the pain medication as needed, along with ibuprofen. If you develop a bulge in the area, especially when that we will not go back in, you will need to have this rechecked. Discharge Date/Time: 04/12/20 11:40
[2020-04-12 09:11] LABS: BASOPHILS # (AUTO) 0.1 10^3/uL (0.0-0.1); EOSINOPHILS # (AUTO) 0.2 10^3/uL (0.0-0.7); EOSINOPHILS % (AUTO) 1.3 %; HGB - HEMOGLOBIN 16.3 g/dL (14.0-18.0); LYMPHOCYTES # (AUTO) 1.2 10^3/uL (1.5-3.5); MEAN CORPUSCULAR HGB CONC 34.5 g/dL (32.0-36.0); MEAN CORPUSCULAR VOLUME 92.7 fL (80.0-94.0); MEAN PLATELET VOLUME 11.4 fL (7.4-11.4); MONOCYTES # (AUTO) 0.6 10^3/uL (0.0-1.0); MONOCYTES % (AUTO) 4.5 %; NEUTROPHILS # (AUTO) 10.7 10^3/uL (1.5-6.6); NEUTROPHILS % (AUTO) 83.8 %; PLT - PLATELET COUNT 222 10^3/uL (130-450); RED CELL DISTRIBUTION WIDTH 13.5 % (12.0-15.0); WHITE BLOOD COUNT 12.8 x10^3/uL (4.8-10.8)
[2020-04-12 09:17] LABS: ALBUMIN/GLOBULIN RATIO 1.3 (1.0-2.2); BILIRUBIN,TOTAL 0.5 mg/dL (0.2-1.0); CALCIUM 9.2 mg/dL (8.5-10.3); CREATININE 1.2 mg/dL (0.6-1.2)
[2020-04-12] MEDS ORDERED: IOVERSOL 320 100 ML VIAL IVP ONE ×2 (09:31→09:49)
--- NOTE | 2020-04-12 10:11 | CT Report ---
PROCEDURE: Abdomen/Pelvis W INDICATIONS: LLQ Abdominal pain, diverticulitis suspected CONTRAST: IV CONTRAST: Optiray 320 ml: 100 PO CONTRAST: *NO PO CONTRAST TECHNIQUE: After the administration of nonionic iodinated contrast, 5 mm thick sections acquired from the diaphr agms to the symphysis. 5 mm thick coronal and sagittal reformats were acquired. For radiation dose reduction, the following was used: automated exposure control, adjustment of mA and/or kV according to patient size. COMPARISON: CT abdomen and pelvis dated 09/29/2019 and 08/03/2019 FINDINGS: Image quality: Excellent. ABDOMEN: Lung bases: There are emphysematous changes of the lung bases. Basilar atelectasis. Inferior mediasti num is unremarkable. Solid organs: Diffuse hypodensity of the liver. No suspicious mass. Portal vein is patent. No intrahe patic ductal dilation. The spleen is normal. Gallbladder is surgically absent. Common bile duct is wi thin normal limits given surgical status. Biliary system is non dilated. Pancreas enhances normally . No adrenal nodules. Kidneys demonstrate normal size and enhancement, without hydronephrosis. Peritoneum and bowel: There is no evidence of obstruction. Proximal duodenal diverticulum is again no johana without surrounding inflammation. Appendix is normal. Subtle mucosal hypoattenuation noted within the terminal ileum as well as throughout the colon is similar to prior examinations. No definite wal l thickening or surrounding inflammation. Nodes and vessels: No retroperitoneal or mesenteric adenopathy by size criteria. Calcified and nonca lcified atherosclerosis is noted throughout the abdominal and pelvic vasculature. There is unchanged fusiform infrarenal abdominal aortic aneurysm dating back to at least August 02, 2019 comparison measu ring 4.9 x 4.7 cm on axial imaging. There is also unchanged dilation of the right common iliac measur ing 2.4 cm. Miscellaneous: No ventral hernias. PELVIS: Genitourinary: Bladder wall thickness is normal. Miscellaneous: No inguinal hernias or adenopathy. Bones: Mild degenerative changes of the spine. No suspicious osseous lesions. No vertebral body compr ession fractures. IMPRESSION: No acute intra-abdominal/pelvic abnormality. Submucosal hypoattenuation of the terminal ileum and the colon is similar to prior examinations and m ay be seen in the setting of chronic inflammation. No acute inflammation on today's exam. Stable infrarenal abdominal aortic aneurysm measuring up to 4.9 cm. This is stable from at least 21 M arch 2019. In addition there is stable dilation of the right common iliac artery measuring up to 2.4 cm. Findings suggestive of hepatic steatosis. Reviewed by: Maikol Rain DO on 04/12/2020 9:10 AM JAMA Approved by: Maikol Rain DO on 04/12/2020 9:10 AM IN Station ID: [id number]
[2020-04-12 10:59] LABS: BILIRUBIN,URINE NEGATIVE (NEGATIVE); GLUCOSE, URINE (UA) NEGATIVE (NEGATIVE); KETONES,URINE (UA) NEGATIVE (NEGATIVE); LEUKOCYTE ESTERASE, URINE NEGATIVE (NEGATIVE); NITRITE,URINE NEGATIVE (NEGATIVE); OCCULT BLOOD,URINE NEGATIVE (NEGATIVE); PH,URINE 5.5 PH (5.0-7.5); PROTEIN,URINE NEGATIVE (NEGATIVE); UROBILINOGEN,URINE 0.2 (NORMAL) E.U./dL (NORMAL)
[2020-04-12 11:00] LABS: CLARITY,URINE CLEAR (CLEAR)
[2020-04-12 12:06] VITALS: BP 120/86
== END 2020-04-12 11:40 | disposition home or self-care (01) ==
LOC: EDUNIT# → ED 08:31
DX: R11.14 Bilious vomiting (principal); S39.011A Strain of muscle, fascia and tendon of abdomen, initial encounter; S76.212A Strain of adductor muscle, fascia and tendon of left thigh, initial encounter; X50.9XXA Other and unspecified overexertion or strenuous movements or postures, initial encounter; Y92.009 Unspecified place in unspecified non-institutional (private) residence as the place of occurrence of the external cause; I71.4 Abdominal aortic aneurysm, without rupture; Z87.19 Personal history of other diseases of the digestive system; I10 Essential (primary) hypertension; F17.200 Nicotine dependence, unspecified, uncomplicated
CPT/HCPCS: 36415; 74177; 80053; 81003; 83690; 85025; 96361; 96374; 96376; 99284; J1170; Q9967; 81001; 87086

== ENCOUNTER 2021-02-11 06:51 | Outpatient (CLI) | payer MEDICARE, MEDICAID | END 2021-02-11 06:52 | disposition critical access hospital (66) | LOC: EMS 06:51 | DX: R10.33 Periumbilical pain (principal); R19.7 Diarrhea, unspecified; R11.10 Vomiting, unspecified | CPT/HCPCS: A0425; A0427 ==

== ENCOUNTER 2021-02-11 07:12 | Emergency (ER) | payer MEDICARE, MEDICAID ==
[2021-02-11] MEDS ORDERED: SODIUM CHLORIDE 0.9% 1,000 ML IV STA (07:22)
[2021-02-11] MEDS ORDERED: HYDROmorphone 1 MG/ML CARPUJECT IVP STA (07:22)
[2021-02-11] MEDS ORDERED: KETOROLAC 15 MG/ML VIAL IVP STA (07:22)
[2021-02-11] MEDS ORDERED: ONDANSETRON 4 MG/2 ML VIAL IVP STA (07:22)
--- NOTE | 2021-02-11 07:24 | ED Physician Documentation ---
PD HPI ABD PAIN - Stated complaint Stated Complaint: ABD PX - History obtained from History obtained from: Patient - History of Present Illness Timing - onset: Yesterday Timing - duration: Hours (12) Timing - details: Gradual onset, Still present (has increased considerably the past few hours.) Quality: Cramping, Aching, Pain Location: All over / everywhere, Periumbilical Radiation: No: Chest, Lower back Improved by: No: Vomiting, Position Worsened by: Eating, Palpation. No: Breathing Associated symptoms: Nausea, Vomiting (several times), Diarrhea (one episode of loose stool last evening.). No: Fever, Melena, Hematochezia Similar symptoms before: Diagnosis (he says it was similar to diverticulitis initially, but then increased diffusely which is different than prior epiosdes.) Recently seen: Not recently seen Review of Systems Constitutional: denies: Fever, Chills Nose: denies: Rhinorrhea / runny nose, Congestion Throat: denies: Sore throat Respiratory: denies: Cough PD PAST MEDICAL HISTORY - Past Medical History Cardiovascular: Hypertension, High cholesterol, Peripheral Vascular Disease (with stable AAA.), Angina Respiratory: COPD, Emphysema Neuro: Head injury, Headaches, Migraines, Peripheral neuropathy Endocrine/Autoimmune: None GI: GERD, GI bleed, Hiatal hernia, Diverticulitis, Cholelithiasis 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 : Benign prostate hypertrophy, Nocturia, Frequency HEENT: Chronic vision loss, Chronic sinusitis, Chronic hearing loss Psych: Depression, Anxiety, Panic attacks, Other Musculoskeletal: Osteoarthritis, Fatigue, Chronic back pain Derm: None - Past Surgical History Past Surgical History: Yes General: Cholecystectomy, Colonoscopy, EGD Ortho: Shoulder arthroplasty Cardiovascular: Other - Present Medications Home Medications: Ambulatory Orders Medication Instructions Recorded Confirmed Omeprazole 40 mg ORAL DAILY 07/11/14 10/18/15 metFORMIN [Glucophage] 500 mg PO BIDWM #30 tablet 05/21/19 Tamsulosin [Flomax] 0.4 mg PO DAILY #30 05/22/19 Ondansetron Odt [Zofran Odt] 4 mg TL Q6H PRN #10 tablet 04/12/20 Cyclobenzaprine [Flexeril] 1 tab TID PRN 02/11/21 02/11/21 Dicyclomine [Bentyl] 10 mg PO QID PRN #20 cap 02/11/21 Rosuvastatin Calcium [Crestor] 40 mg DAILY 02/11/21 02/11/21 oxyCODONE [Roxicodone] 1 - 2 tab Q12H PRN 02/11/21 02/11/21 - Allergies Allergies/Adverse Reactions: Allergies Allergy/AdvReac Type Severity Reaction Status Date / Time acetaminophen [From Tylenol] Allergy Cramps Verified 02/11/21 07:23 morphine Allergy Rash Verified 02/11/21 07:23 gabapentin AdvReac Hallucinati Verified 02/11/21 07:23 ons "all cilins" Allergy Rash Uncoded 04/12/20 08:44 - Social History Does the pt smoke?: Yes Smoking Status: Current every day smoker Does the pt drink ETOH?: No Does the pt have substance abuse?: Yes - Immunizations Immunizations are current?: Yes Immunizations: TDAP >10years/unknown, Other immun not current - POLST Patient has POLST: No POLST Status: Full Code PD ED PE NORMAL - Vitals Vital signs reviewed: Yes - General General: Alert and oriented X 3, Well developed/nourished, Other (appears in considerable distress due to general to upper abd pain. Clutching at abdomen.) - HEENT HEENT: Moist mucous membranes - Neck Neck: Supple, no meningeal sign, No adenopathy - Cardiac Cardiac: RRR, No murmur - Respiratory Respiratory: No respiratory distress, Clear bilaterally - Abdomen Abdomen: Normal bowel sounds, Soft, Non distended, No organomegaly, Other (tender diffuse upper abd with guarding. No percussion tenderness. ) - Derm Derm: Normal color, Warm and dry - Extremities Extremities: Normal ROM s pain, No edema, No calf tenderness / cord - Neuro Neuro: Alert and oriented X 3, No motor deficit, Normal speech Results - Vitals Vitals: Vital Signs - 24 hr 02/11/21 02/11/21 02/11/21 07:13 08:00 08:30 Temperature 36.1 C L Heart Rate 106 H 97 81 Respiratory 18 18 18 Rate Blood Pressure 163/98 H 125/93 H 134/96 H O2 Saturation 96 94 92 02/11/21 09:00 Temperature Heart Rate 76 Respiratory 16 Rate Blood Pressure 138/89 H O2 Saturation 93 Oxygen O2 Source Room air - Labs Labs: Laboratory Tests 02/11/21 02/11/21 07:30 07:30 WBC 9.6 RBC 5.63 Hgb 17.8 Hct 51.1 MCV 90.8 MCH 31.6 H MCHC 34.8 RDW 13.1 Plt Count 252 MPV 11.1 Neut # (Auto) 5.5 Lymph # (Auto) 2.7 [place] # (Auto) 0.9 Eos # (Auto) 0.4 Baso # (Auto) 0.1 Absolute Nucleated RBC 0.00 Nucleated RBC % 0.0 Sodium 138 Potassium 4.1 Chloride 105 Carbon Dioxide 23 Anion Gap 10.0 BUN 17 Creatinine 1.2 Estimated GFR (MDRD) 63 L Glucose 112 H Calcium 9.5 Total Bilirubin 1.3 H AST 27 ALT 42 Alkaline Phosphatase 76 Total Protein 7.6 Albumin 4.5 Globulin 3.1 Albumin/Globulin Ratio 1.5 Lipase 28 - Rads (name of study) abd/pelvic CT Radiology: Prelim report reviewed (diverticula without itis, slightly increased AAA size without leakage. No obstruction. Normal pancreas. Mild fat inflammation lower possible IBD. ), See rad report PD MEDICAL DECISION MAKING - ED course Complexity details: reviewed old records (no findings on most recent visits. Prior diverticulitis and aneurysm in the past. ), reviewed results (no aucte changes. Aneurysm slightly increased size. No signs of leakage. No diverticulitis. No obstruction.), re-evaluated patient, considered differential, d/w patient Departure - Departure Disposition: 01 Home, Self Care Clinical Impression: Acute abdominal pain, Cannabinoid hyperemesis syndrome Condition: Stable Record reviewed to determine appropriate education?: Yes Instructions: ED Abdominal Pain Unkn Cause Prescriptions: Dicyclomine [Bentyl] 10 mg PO QID PRN #20 cap PRN Reason: Abdominal Pain Comments: Your blood tests and CT scan did not show any acute cause for the pain. No signs of diverticulitis or bowel obstruction or pancreatitis. Your aneurysm ap pears stable. Considerations would be intestinal spasming or irritable bowel or spasming related to cannabis use. Stay well-hydrated today. Ibuprofen or naproxen if needed for pains. Nausea medicine if needed. You could try dicyclomine which is an intestinal antispasmodic if you have cramping type pains in the future. This would be as needed. Use a mild stool softener daily for the next couple of days as the pain medicine can be constipated. Return if recurrent episodes or if not fully improved over the next few days. I transmitted your script to [place]. Discharge Date/Time: 02/11/21 09:20
[2021-02-11] MEDS ORDERED: DROPERIDOL 5 MG/2 ML VIAL IVP STA (07:34)
[2021-02-11 07:37] LABS: BASOPHILS # (AUTO) 0.1 10^3/uL (0.0-0.1); BASOPHILS % (AUTO) 1.5 %; EOSINOPHILS # (AUTO) 0.4 10^3/uL (0.0-0.7); EOSINOPHILS % (AUTO) 4.3 %; HCT - HEMATOCRIT 51.1 % (42.0-52.0); HGB - HEMOGLOBIN 17.8 g/dL (14.0-18.0); LYMPHOCYTES # (AUTO) 2.7 10^3/uL (1.5-3.5); LYMPHOCYTES % (AUTO) 27.7 %; MEAN CORPUSCULAR HEMOGLOBIN 31.6 pg (27.0-31.0); MEAN CORPUSCULAR HGB CONC 34.8 g/dL (32.0-36.0); MEAN CORPUSCULAR VOLUME 90.8 fL (80.0-94.0); MEAN PLATELET VOLUME 11.1 fL (7.4-11.4); MONOCYTES # (AUTO) 0.9 10^3/uL (0.0-1.0); MONOCYTES % (AUTO) 9.6 %; NEUTROPHILS # (AUTO) 5.5 10^3/uL (1.5-6.6); NEUTROPHILS % (AUTO) 56.7 %; PLT - PLATELET COUNT 252 10^3/uL (130-450); RED BLOOD COUNT 5.63 10^6/uL (4.70-6.10); RED CELL DISTRIBUTION WIDTH 13.1 % (12.0-15.0); WHITE BLOOD COUNT 9.6 x10^3/uL (4.8-10.8)
[2021-02-11 07:49] LABS: ALBUMIN 4.5 g/dL (3.2-5.5); ALBUMIN/GLOBULIN RATIO 1.5 (1.0-2.2); BILIRUBIN,TOTAL 1.3 mg/dL (0.2-1.0); CALCIUM 9.5 mg/dL (8.5-10.3); CREATININE 1.2 mg/dL (0.6-1.2); POTASSIUM 4.1 mmol/L (3.5-5.0); TOTAL PROTEIN 7.6 g/dL (6.7-8.2)
[2021-02-11] MEDS ORDERED: IOVERSOL 320 100 ML VIAL IVP ONE ×2 (07:55→08:42)
--- NOTE | 2021-02-11 08:32 | CT Report ---
PROCEDURE: Abdomen/Pelvis W INDICATIONS: Abdominal pain, acute, nonlocalized CONTRAST: IV CONTRAST: Optiray 320 ml: 100 PO CONTRAST: *NO PO CONTRAST TECHNIQUE: After the administration of contrast, 5 mm thick sections acquired from the diaphragms to the sym physis. 5 mm thick coronal and sagittal reformats were acquired. For radiation dose reduction, the following was used: automated exposure control, adjustment of mA and/or kV according to patient size . COMPARISON: 04/12/2020, 09/29/2019 and 08/03/2019.. FINDINGS: Image quality: Excellent. ABDOMEN: Lung bases: Lung bases are clear. Heart size is normal. Solid organs: Liver and spleen are normal in size and enhancement. Gallbladder is surgically absent . Biliary system is non dilated. Pancreas enhances normally. No adrenal nodules. Kidneys demonstr ate normal size and enhancement, without hydronephrosis. Peritoneum and bowel: Bowel loops demonstrate normal wall thickness and caliber. Duodenal diverticul um is stable. A few scattered colonic diverticuli without evidence of diverticulitis. Submucosal fat scattered throughout the colon is stable compared to prior exams. No free fluid or air. Appendix is n ormal. Nodes and vessels: No retroperitoneal or mesenteric adenopathy by size criteria. 4.8 x 5.2 cm infrar enal abdominal aortic aneurysm slightly increased in size compared to 04/12/2020. 2.5 cm right iliac artery aneurysm is stable compared to the prior exam. Miscellaneous: No ventral hernias. PELVIS: Genitourinary: Bladder wall thickness is normal. Miscellaneous: No inguinal hernias or adenopathy. Bones: No suspicious bony lesions. No vertebral body compression fractures. IMPRESSION: 1. No acute disease process. 2. The appendix is normal. 3. No free fluid or free air. 4. No dilated loops of bowel. 5. 4.8 x 5.2 cm infrarenal abdominal aortic aneurysm slightly increased in size compared to 0. 2.5 cm right iliac artery aneurysm is stable compared to the prior exam. 6. Colonic diverticulosis without evidence of diverticulitis. 7. Submucosal fat involving the colon is stable compared to prior exams. Finding is nonspecific but c an be associated with chronic inflammatory process including inflammatory bowel disease. Reviewed by: Shea Steel MD, PhD on 02/11/2021 8:30 AM PDT Approved by: Shea Steel MD, PhD on 02/11/2021 8:30 AM PDT Station ID: [id number]
[2021-02-11] MEDS ORDERED: KETOROLAC 30 MG/ML VIAL IVP STA (08:48)
[2021-02-11 09:05] VITALS: BP 138/89
== END 2021-02-11 09:20 | disposition home or self-care (01) ==
LOC: EDBD → EDUNIT# → ED 07:12
DX: R10.84 Generalized abdominal pain (principal); R11.2 Nausea with vomiting, unspecified; R19.7 Diarrhea, unspecified; F17.200 Nicotine dependence, unspecified, uncomplicated
CPT/HCPCS: 36415; 74177; 80053; 83690; 85025; 96361; 96374; 96375; 99284; J1170; Q9967

== ENCOUNTER 2021-04-15 05:20 | Outpatient (CLI) | payer MEDICARE, MEDICAID | END 2021-04-15 05:21 | disposition critical access hospital (66) | LOC: EMS 05:20 | DX: R10.12 Left upper quadrant pain (principal) | CPT/HCPCS: A0425; A0429 ==

== ENCOUNTER 2021-04-15 05:39 | Emergency (ER) | payer MEDICARE, MEDICAID ==
[2021-04-15] MEDS ORDERED: SODIUM CHLORIDE 0.9% 1,000 ML IV STA (05:47)
[2021-04-15] MEDS ORDERED: HYDROmorphone 1 MG/ML CARPUJECT IVP STA (05:52)
[2021-04-15] MEDS ORDERED: ONDANSETRON 4 MG/2 ML VIAL IVP STA (05:52)
[2021-04-15 05:57] LABS: BASOPHILS # (AUTO) 0.1 10^3/uL (0.0-0.1); EOSINOPHILS # (AUTO) 0.4 10^3/uL (0.0-0.7); EOSINOPHILS % (AUTO) 2.5 %; LYMPHOCYTES # (AUTO) 1.7 10^3/uL (1.5-3.5); MEAN CORPUSCULAR HEMOGLOBIN 31.9 pg (27.0-31.0); MEAN CORPUSCULAR HGB CONC 34.7 g/dL (32.0-36.0); MEAN CORPUSCULAR VOLUME 91.9 fL (80.0-94.0); MONOCYTES # (AUTO) 0.8 10^3/uL (0.0-1.0); MONOCYTES % (AUTO) 5.6 %; NEUTROPHILS # (AUTO) 11.3 10^3/uL (1.5-6.6); NEUTROPHILS % (AUTO) 78.4 %; PLT - PLATELET COUNT 254 10^3/uL (130-450); RED BLOOD COUNT 5.33 10^6/uL (4.70-6.10); RED CELL DISTRIBUTION WIDTH 13.6 % (12.0-15.0); WHITE BLOOD COUNT 14.4 x10^3/uL (4.8-10.8)
[2021-04-15] MEDS ORDERED: KETOROLAC 30 MG/ML VIAL IVP STA (06:05)
[2021-04-15] MEDS ORDERED: DROPERIDOL 5 MG/2 ML VIAL IVP STA (06:05)
--- NOTE | 2021-04-15 06:05 | ED Physician Documentation ---
PD HPI ABD PAIN - Stated complaint Stated Complaint: ABD PAIN, N/V/D - Chief complaint Chief Complaint: Abd Pain - History obtained from History obtained from: Patient, EMS - History of Present Illness Timing - onset: How many hours ago (6-7 hours ago) Timing - duration: Hours Timing - details: Abrupt onset Pain level max: 10 Pain level now: 10 Quality: Cramping, Pain Location: All over / everywhere (predominantly LLQ) Improved by: Other (nothing) Worsened by: Other (no exacerbating factors) Associated symptoms: Nausea, Vomiting, Diarrhea. No: Fever, Constipation Similar symptoms before: No diagnosis - Additional information Additional information: BIBA for sudden onset abdominal pain, diffuse but predominantly LLQ with nausea, vomiting, and diarrhea. He has been evaluated in this ED in the past for similar symptoms without specific etiology on most recent workups (has AAA and diverticulosis but incidental findings on previous visits). Review of Systems Constitutional: reports: Sweats. 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 : Benign prostate hypertrophy, Nocturia, Frequency HEENT: Chronic vision loss, Chronic sinusitis, Chronic hearing loss Psych: Depression, Anxiety, Panic attacks, Other Musculoskeletal: Osteoarthritis, Fatigue, Chronic back pain Derm: None - Past Surgical History Past Surgical History: Yes General: Cholecystectomy, Colonoscopy, EGD Ortho: Shoulder arthroplasty Cardiovascular: Other - Present Medications Home Medications: Ambulatory Orders Medication Instructions Recorded Confirmed Omeprazole 40 mg ORAL DAILY 07/11/14 10/18/15 metFORMIN [Glucophage] 500 mg PO BIDWM #30 tablet 05/21/19 Tamsulosin [Flomax] 0.4 mg PO DAILY #30 05/22/19 Ondansetron Odt [Zofran Odt] 4 mg TL Q6H PRN #10 tablet 04/12/20 Cyclobenzaprine [Flexeril] 1 tab TID PRN 02/11/21 02/11/21 Dicyclomine [Bentyl] 10 mg PO QID PRN #20 cap 02/11/21 Rosuvastatin Calcium [Crestor] 40 mg DAILY 02/11/21 02/11/21 oxyCODONE [Roxicodone] 1 - 2 tab PO Q12H PRN 02/11/21 02/11/21 - Allergies Allergies/Adverse Reactions: Allergies Allergy/AdvReac Type Severity Reaction Status Date / Time acetaminophen [From Tylenol] Allergy Cramps Verified 04/15/21 05:44 morphine Allergy Rash Verified 04/15/21 05:44 gabapentin AdvReac Hallucinati Verified 04/15/21 05:44 ons "all cilins" Allergy Rash Uncoded 04/12/20 08:44 - Social History Does the pt smoke?: Yes Smoking Status: Current every day smoker Does the pt drink ETOH?: No Does the pt have substance abuse?: Yes - Immunizations Immunizations are current?: Yes Immunizations: TDAP >10years/unknown, Other immun not current - POLST Patient has POLST: No POLST Status: Full Code PD ED PE NORMAL - Vitals Vital signs reviewed: Yes - General General: Alert and oriented X 3, Well developed/nourished, Other (obvious severe painful distress; facial flushing, diaphoretic) - HEENT HEENT: Moist mucous membranes - Cardiac Cardiac: No murmur - Respiratory Respiratory: No respiratory distress, Clear bilaterally - Abdomen Abdomen: Soft, Non distended, Other (mild/moderate LLQ tenderness without rebound or guarding) - Back Back: No CVA TTP - Neuro Neuro: Alert and oriented X 3 PD ED PE EXPANDED - Cardiac Cardiac: Tachy, Regular Rhythm Results - Vitals Vitals: Vital Signs - 24 hr 04/15/21 04/15/21 04/15/21 05:42 06:19 06:43 Temperature 35.5 C L Heart Rate 119 H 78 89 Respiratory 24 24 18 Rate Blood Pressure 196/140 H 169/104 H 137/88 H O2 Saturation 97 93 98 Oxygen O2 Source Nasal cannula - Labs Labs: Laboratory Tests 04/15/21 04/15/21 05:49 05:49 WBC 14.4 H RBC 5.33 Hgb 17.0 Hct 49.0 MCV 91.9 MCH 31.9 H MCHC 34.7 RDW 13.6 Plt Count 254 MPV 11.0 Neut # (Auto) 11.3 H Lymph # (Auto) 1.7 Lipscomb # (Auto) 0.8 Eos # (Auto) 0.4 Baso # (Auto) 0.1 Absolute Nucleated RBC 0.00 Nucleated RBC % 0.0 Sodium 139 Potassium 3.9 Chloride 103 Carbon Dioxide 24 Anion Gap 12.0 BUN 17 Creatinine 1.2 Estimated GFR (MDRD) 62 L Glucose 133 H Calcium 9.6 Total Bilirubin 0.7 AST 19 ALT 28 Alkaline Phosphatase 71 Total Protein 7.6 Albumin 4.5 Globulin 3.1 Albumin/Globulin Ratio 1.5 Lipase 28 - Rads (name of study) CT A/P with IV contrast Radiology: Prelim report reviewed, See rad report PD MEDICAL DECISION MAKING - ED course Complexity details: reviewed results, re-evaluated patient, considered differential, d/w patient ED course: as with previous ED visits for these symptoms, he had excellent symptom relief with IV dilaudid, toradol, NS, zofran and droperidol. He did not bargain or argue regarding medications nor doses and reported resolution of symptoms on reevaluation. He declined medication prescriptions. CT A/P does not reveal new nor emergently concerning findings (AAA is unchanged in size (0.1 cm larger than previous, which does not represent significant change), diverticulosis without evidence of diverticulitis, and nonobstructing 2mm left intrarenal calculus. Departure - Departure Disposition: 01 Home, Self Care Clinical Impression: Acute abdominal pain Condition: Good Instructions: ED Acute Pain [facility] Follow-Up: KIKA MCCRACKEN DO [Primary Care Provider] - Comments: The cause of your symptoms is unclear at this time; your blood tests and CT scan do not have abnormalities that would explain the symptoms. There is an aortic aneurysm which is not significantly changed in size compared to the previous CT scan. Discharge Date/Time: 04/15/21 08:28
[2021-04-15 06:11] LABS: ALBUMIN 4.5 g/dL (3.2-5.5); ALBUMIN/GLOBULIN RATIO 1.5 (1.0-2.2); BILIRUBIN,TOTAL 0.7 mg/dL (0.2-1.0); CALCIUM 9.6 mg/dL (8.5-10.3); CREATININE 1.2 mg/dL (0.6-1.2); POTASSIUM 3.9 mmol/L (3.5-5.0); TOTAL PROTEIN 7.6 g/dL (6.7-8.2)
[2021-04-15] MEDS ORDERED: IOVERSOL 320 100 ML VIAL IVP ONE ×2 (06:19→06:50)
[2021-04-15 06:45] VITALS: BP 137/88
--- NOTE | 2021-04-15 08:30 | CT Report ---
PROCEDURE: Abdomen/Pelvis W INDICATIONS: abdominal pain CONTRAST: IV CONTRAST: Optiray 320 ml: 100 PO CONTRAST: *NO PO CONTRAST TECHNIQUE: After the administration of IV contrast, 5 mm thick sections acquired from the diaphragms to the symp hysis. 5 mm thick coronal and sagittal reformats were acquired. For radiation dose reduction, the f ollowing was used: automated exposure control, adjustment of mA and/or kV according to patient size. COMPARISON: 02/11/2021 CT examination. FINDINGS: Image quality: Excellent. ABDOMEN: Lung bases: There is mild dependent bibasilar atelectasis. Lung bases are otherwise clear. Heart si ze is normal. Solid organs: Liver and spleen are normal in size and enhancement. Gallbladder is surgically absent Biliary system is non dilated. Pancreas enhances normally. No adrenal nodules. Kidneys demonstra te normal size and enhancement, without hydronephrosis. Peritoneum and bowel: Fatty hypertrophy of the wall of the colon is present diffusely. Appendix is n ormal. Bowel loops demonstrate otherwise normal wall thickness and caliber. No free fluid or air. Nodes and vessels: No retroperitoneal or mesenteric adenopathy by size criteria. IVC is within arthur l limits. 53 mm diameter aneurysm of the infrarenal abdominal aorta with moderate mural thrombus, as before. 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 Miscellaneous: No ventral may ias. PELVIS: Genitourinary: Bladder wall thickness is normal. Miscellaneous: No inguinal hernias or adenopathy. Bones: No suspicious bony lesions. No vertebral body compression fractures. IMPRESSION: 1. No acute process. 2. No change in findings suggestive of chronic colitis. No evidence of acute colitis. 3. Aortoiliac aneurysms are unchanged. 4. Concordant with preliminary interpretation. Reviewed by: Fernando Thomas MD on 04/15/2021 8:29 AM PST Approved by: Fernando Thomas MD on 04/15/2021 8:29 AM PST Station ID: [id number]
== END 2021-04-15 08:28 | disposition home or self-care (01) ==
LOC: EDUNIT# → SUPCPDRO 05:39 → ED 05:39
DX: R10.32 Left lower quadrant pain (principal); I10 Essential (primary) hypertension; I73.9 Peripheral vascular disease, unspecified; J43.9 Emphysema, unspecified; F17.200 Nicotine dependence, unspecified, uncomplicated
CPT/HCPCS: 36415; 74177; 80053; 83690; 85025; 96374; 96375; 99282; 99285; J1170; Q9967

== ENCOUNTER 2021-07-14 09:48 | Outpatient (CLI) | payer MEDICARE, MEDICAID | END 2021-07-14 09:49 | disposition critical access hospital (66) | LOC: EMS 09:48 | DX: R10.822 Left upper quadrant rebound abdominal tenderness (principal); R10.823 Right lower quadrant rebound abdominal tenderness; R10.814 Left lower quadrant abdominal tenderness; R10.821 Right upper quadrant rebound abdominal tenderness; R50.9 Fever, unspecified | CPT/HCPCS: A0425; A0427 ==

== ENCOUNTER 2021-07-14 10:07 | Emergency (ER) | payer MEDICARE, MEDICAID ==
[2021-07-14] MEDS ORDERED: SODIUM CHLORIDE 0.9% 1,000 ML IV STA (10:21)
[2021-07-14] MEDS ORDERED: HYDROmorphone 1 MG/ML CARPUJECT IVP STA ×2 (10:34→11:04)
--- NOTE | 2021-07-14 10:41 | ED Physician Documentation ---
PD HPI ABD PAIN - Stated complaint Stated Complaint: abd pain - Chief complaint Chief Complaint: Abd Pain - History obtained from History obtained from: Patient - Additional information Additional information: The patient comes to the emergency department chief complaint of sudden onset of left low back and lower quadrant abdominal pain that started about 1 hour ago. Patient states the pain has been severe. He has a history of Abdominal aortic and right iliac aneurysms which have been stable on the 5 CTs that the patient has had in the roughly last 2 years. No history of kidney stones for the patient or his family that he knows of. No testicular pain or swelling recently. Patient states he was walking his dog when the pain began and that it started in his low abdomen and back and shot down through his buttock. He states that resolved and focused into a pain mainly in the left lower quadrant but also in the back. Patient denies any change in his bowel habits. No dysuria or hematuria. No nausea or vomiting. No recent fevers. He was feeling fine before this happened. The patient has been seen here extensively for abdominal pain complaints and worked up many times, due to his history of AAA. He does also have a history of of diverticulosis and has had occasional diverticulitis in the past but not recently. Review of Systems Ten Systems: 10 systems reviewed and negative Constitutional: reports: Reviewed and negative Eyes: reports: Reviewed and negative Ears: reports: Reviewed and negative Nose: reports: Reviewed and negative Throat: reports: Reviewed and negative Cardiac: reports: Reviewed and negative Respiratory: reports: Reviewed and negative GI: reports: Abdominal Pain : reports: Reviewed and negative Skin: reports: Reviewed and negative Musculoskeletal: reports: Back pain Neurologic: reports: Reviewed and negative Psychiatric: reports: Reviewed and negative Endocrine: reports: Reviewed and negative Immunocompromised: reports: Reviewed and negative PD PAST MEDICAL HISTORY - Past Medical History Cardiovascular: Hypertension, High cholesterol, Peripheral Vascular Disease, Angina Respiratory: COPD, Emphysema Neuro: Head injury, Headaches, Migraines, Peripheral neuropathy Endocrine/Autoimmune: None GI: GERD, GI bleed, Hiatal hernia, Diverticulitis, Cholelithiasis 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 : Benign prostate hypertrophy, Nocturia, Frequency HEENT: Chronic vision loss, Chronic sinusitis, Chronic hearing loss Psych: Depression, Anxiety, Panic attacks, Other Musculoskeletal: Osteoarthritis, Fatigue, Chronic back pain Derm: None - Past Surgical History Past Surgical History: Yes General: Cholecystectomy, Colonoscopy, EGD Ortho: Shoulder arthroplasty Cardiovascular: Other - Present Medications Home Medications: Ambulatory Orders Medication Instructions Recorded Confirmed Omeprazole 40 mg ORAL DAILY 07/11/14 10/18/15 metFORMIN [Glucophage] 500 mg PO BIDWM #30 tablet 05/21/19 Tamsulosin [Flomax] 0.4 mg PO DAILY #30 05/22/19 Ondansetron Odt [Zofran Odt] 4 mg TL Q6H PRN #10 tablet 04/12/20 Cyclobenzaprine [Flexeril] 1 tab TID PRN 02/11/21 02/11/21 Dicyclomine [Bentyl] 10 mg PO QID PRN #20 cap 02/11/21 Rosuvastatin Calcium [Crestor] 40 mg DAILY 02/11/21 02/11/21 oxyCODONE [Roxicodone] 1 - 2 tab PO Q12H PRN 02/11/21 02/11/21 - Allergies Allergies/Adverse Reactions: Allergies Allergy/AdvReac Type Severity Reaction Status Date / Time acetaminophen [From Tylenol] Allergy Cramps Verified 07/14/21 10:17 morphine Allergy Rash Verified 07/14/21 10:17 gabapentin AdvReac Hallucinati Verified 07/14/21 10:17 ons "all cilins" Allergy Rash Uncoded 07/14/21 10:17 - Social History Does the pt smoke?: Yes Smoking Status: Current every day smoker Does the pt drink ETOH?: No Does the pt have substance abuse?: Yes - Immunizations Immunizations are current?: Yes Immunizations: TDAP >10years/unknown, Other immun not current - POLST Patient has POLST: No POLST Status: Full Code PD ED PE NORMAL - Vitals Vital signs reviewed: Yes - General General: Alert and oriented X 3, Well developed/nourished, Other (Appears in significant discomfort, writhing, groaning, clutching left lower quadrant, diaphoretic. Is able to give history and relax intermittently.) - HEENT HEENT: Atraumatic, PERRL, EOMI, Moist mucous membranes, Other (Diaphoretic) - Neck Neck: Supple, no meningeal sign - Cardiac Cardiac: RRR, No murmur - Respiratory Respiratory: No respiratory distress, Clear bilaterally - Abdomen Abdomen: Soft, Non distended, Other (Moderate left lower quadrant and flank tenderness, no rebound or guarding.) - Male Male : Other (Testicles descended bilaterally, nontender, symmetrical. No edema or discoloration of the scrotum. No inguinal mass. Inguinal pulses intact and equal bilaterally) - Back Back: No CVA TTP, No spinal TTP - Derm Derm: Warm and dry - Extremities Extremities: No deformity - Neuro Neuro: Alert and oriented X 3, attic blower 2-12 intact, Normal speech, Other (Grossly intact) - Psych Psych: Normal mood, Normal affect Results - Vitals Vitals: Vital Signs - 24 hr 07/14/21 07/14/21 07/14/21 10:09 10:32 10:40 Temperature 36.0 C L Heart Rate 122 H 103 H 107 H Respiratory 19 26 H Rate Blood Pressure 156/121 H 142/115 H 151/88 H O2 Saturation 97 99 98 07/14/21 07/14/21 07/14/21 11:00 11:30 12:00 Temperature Heart Rate 104 H 90 92 Respiratory 19 17 16 Rate Blood Pressure 165/113 H 156/97 H 127/96 H O2 Saturation 96 92 91 L 07/14/21 07/14/21 07/14/21 12:30 13:00 13:37 Temperature 36.3 C L Heart Rate 75 90 80 Respiratory 18 18 16 Rate Blood Pressure 125/93 H 127/104 H 126/100 H O2 Saturation 97 91 L 96 Oxygen O2 Source Room air - Labs Labs: Laboratory Tests 07/14/21 07/14/21 07/14/21 10:37 10:37 10:37 WBC 9.7 RBC 5.33 Hgb 16.9 Hct 47.7 MCV 89.5 MCH 31.7 H MCHC 35.4 RDW 12.9 Plt Count 234 MPV 11.3 Neut # (Auto) 6.4 Lymph # (Auto) 2.1 Brule # (Auto) 0.7 Eos # (Auto) 0.4 Baso # (Auto) 0.1 Absolute Nucleated RBC 0.00 Nucleated RBC % 0.0 PT INR Sodium 137 Potassium 4.4 Chloride 106 Carbon Dioxide 21 Anion Gap 10.0 BUN 13 Creatinine 1.3 H Estimated GFR (MDRD) 57 L Glucose 114 H Lactic Acid Calcium 9.4 Total Bilirubin 0.8 AST 23 ALT 34 Alkaline Phosphatase 84 Total Protein 7.4 Albumin 4.3 Globulin 3.1 Albumin/Globulin Ratio 1.4 Lipase 27 Blood Type O POSITIVE Blood Type Recheck Antibody Screen NEGATIVE 07/14/21 07/14/21 07/14/21 10:37 10:37 11:53 WBC RBC Hgb Hct MCV MCH MCHC RDW Plt Count MPV Neut # (Auto) Lymph # (Auto) Brule # (Auto) Eos # (Auto) Baso # (Auto) Absolute Nucleated RBC Nucleated RBC % PT 10.6 INR 1.0 Sodium Potassium Chloride Carbon Dioxide Anion Gap BUN Creatinine Estimated GFR (MDRD) Glucose Lactic Acid 1.4 Calcium Total Bilirubin AST ALT Alkaline Phosphatase Total Protein Albumin Globulin Albumin/Globulin Ratio Lipase Blood Type Blood Type Recheck O POSITIVE Antibody Screen - Rads (name of study) CT abdomen and pelvis with IV contrast Radiology: Final report received, EMP read indepedently, See rad report (No aortic rupture; No diverticulitis) PD MEDICAL DECISION MAKING - ED course Complexity details: reviewed old records, reviewed results, re-evaluated patient, considered differential, d/w patient ED course: The patient was in significant discomfort. He was hypertensive and mildly tachycardic but otherwise fairly stable hemodynamically. His pain and tenderness are localized to the left side, but the sudden onset did not seem to indicate that diverticulitis would be most likely. The patient did not have any evidence clinically of testicular torsion, and did have a history of abdominal aortic aneurysm, so I felt initially, he should have a CT scan of the abdomen and pelvis performed. He was given a milligram of Dilaudid to help with the pain and laboratory studies were drawn and sent. The patient had 2 large-bore IVs placed and was started on IV fluids. He was finally feeling better after 2 more milligrams of Dilaudid. CT scan was unremarkable for acute findings. The patient was deemed stable for discharge home. Departure - Departure Disposition: 01 Home, Self Care Clinical Impression: Abdominal pain Qualifiers: Abdominal location: left lower quadrant Qualified Code(s): R10.32 - Left lower quadrant pain Condition: Stable Instructions: ED Abdominal Pain Unkn Cause Male Comments: Your CT scan looks good. Your labs also do not show any concerning abnormalities. It is not clear why you have chronic abdominal pain, but there is no evidence of an acute worsening of your abdominal aortic aneurysm, nor is there evidence of infected diverticuli. Please follow-up with your primary care physician to discuss outpatient pain management Discharge Date/Time: 07/14/21 14:00
[2021-07-14 10:45] LABS: BASOPHILS # (AUTO) 0.1 10^3/uL (0.0-0.1); EOSINOPHILS # (AUTO) 0.4 10^3/uL (0.0-0.7); EOSINOPHILS % (AUTO) 3.7 %; HCT - HEMATOCRIT 47.7 % (42.0-52.0); HGB - HEMOGLOBIN 16.9 g/dL (14.0-18.0); LYMPHOCYTES # (AUTO) 2.1 10^3/uL (1.5-3.5); LYMPHOCYTES % (AUTO) 21.3 %; MEAN CORPUSCULAR HEMOGLOBIN 31.7 pg (27.0-31.0); MEAN CORPUSCULAR HGB CONC 35.4 g/dL (32.0-36.0); MEAN CORPUSCULAR VOLUME 89.5 fL (80.0-94.0); MEAN PLATELET VOLUME 11.3 fL (7.4-11.4); MONOCYTES # (AUTO) 0.7 10^3/uL (0.0-1.0); MONOCYTES % (AUTO) 7.7 %; NEUTROPHILS # (AUTO) 6.4 10^3/uL (1.5-6.6); NEUTROPHILS % (AUTO) 66.1 %; PLT - PLATELET COUNT 234 10^3/uL (130-450); RED BLOOD COUNT 5.33 10^6/uL (4.70-6.10); RED CELL DISTRIBUTION WIDTH 12.9 % (12.0-15.0); WHITE BLOOD COUNT 9.7 x10^3/uL (4.8-10.8)
[2021-07-14 10:57] LABS: PT - PROTHROMBIN TIME 10.6 secs (9.9-12.6)
[2021-07-14 11:03] LABS: ALBUMIN 4.3 g/dL (3.2-5.5); ALBUMIN/GLOBULIN RATIO 1.4 (1.0-2.2); BILIRUBIN,TOTAL 0.8 mg/dL (0.2-1.0); CALCIUM 9.4 mg/dL (8.5-10.3); CREATININE 1.3 mg/dL (0.6-1.2); POTASSIUM 4.4 mmol/L (3.5-5.0); TOTAL PROTEIN 7.4 g/dL (6.7-8.2)
[2021-07-14] MEDS ORDERED: IOVERSOL 320 100 ML VIAL IVP ONE ×2 (11:19→11:49)
--- NOTE | 2021-07-14 12:02 | CT Report ---
PROCEDURE: Abdomen/Pelvis W INDICATIONS: severe LLQ/low back pain CONTRAST: IV CONTRAST: Optiray 320 ml: 100 PO CONTRAST: *NO PO CONTRAST TECHNIQUE: After the administration of intravenous contrast, 5 mm thick sections acquired from the diaphragms to the symphysis. 5 mm thick coronal and sagittal reformats were acquired. For radiation dose reducti on, the following was used: automated exposure control, adjustment of mA and/or kV according to smooth ent size. COMPARISON: CT abdomen pelvis 04/15/2021, 01/15/2021, 04/12/2020. FINDINGS: Image quality: Excellent. ABDOMEN: Lung bases: There is minimal dependent atelectasis. Heart size is normal. Solid organs: There is hypoattenuation of the liver compatible fatty infiltration. Gallbladder is shawn gically absent. Biliary system is non dilated. The spleen is normal in size. Pancreas enhances arthur lly without peripancreatic fat stranding or fluid collections. No adrenal nodules. Kidneys demonstr ate no hydronephrosis. Peritoneum and bowel: Small bowel loops demonstrate normal wall thickness and caliber. No evidence of appendicitis. There is colonic diverticulosis without acute diverticulitis. There is mild segmental wall thickening and mild submucosal edema involving nondistended segments in the descending colon as well as the rectosigmoid colon which may reflect a mild colitis. No free fluid or air. Nodes and vessels: No retroperitoneal or mesenteric adenopathy by size criteria. There is fusiform a neurysmal dilatation of the infrarenal abdominal aorta which measures up to 5.1 cm in anterior telemetry technician ior dimension, progressively slightly increased in size compared to prior studies, measuring up to 4. 7 cm at a comparable level on the 04/12/20 study. There is also aneurysmal dilatation of the right co mmon iliac artery which measures up to 2.5 cm compared to 2.2 cm on the 04/12/2020 study. Scattered a therosclerotic vascular calcifications demonstrated along the course of the aorta. There is also ecce ntric intraluminal thrombus redemonstrated within the aortic aneurysm. No intimal flaps to suggest di ssection. Miscellaneous: No ventral hernias. PELVIS: Genitourinary: Bladder wall thickness is normal. There are a few posterior and right bladder diverti cula are redemonstrated. Miscellaneous: No inguinal hernias or adenopathy. Bones: No suspicious bony lesions. No vertebral body compression fractures. IMPRESSION: 1. Colonic diverticulosis without acute diverticulitis. 2. Short segments of colonic nondistention and mild wall thickening suggestive of a mild colitis. 3. Fusiform aneurysmal dilatation of the abdominal aorta and right common iliac artery demonstrating progressive mild increase in size compared to prior studies as described. No evidence of aortic disse ction. Reviewed by: Bradley Moore MD on 07/14/2021 12:01 PM PST Approved by: Bradley Moore MD on 07/14/2021 12:01 PM PST Station ID: [id number]
[2021-07-14 13:38] VITALS: BP 126/100
== END 2021-07-14 14:00 | disposition home or self-care (01) ==
LOC: EDUNIT# → ED 10:07
DX: R10.30 Lower abdominal pain, unspecified (principal); I10 Essential (primary) hypertension; F17.200 Nicotine dependence, unspecified, uncomplicated
CPT/HCPCS: 36415; 74177; 80053; 83605; 83690; 85025; 85610; 86850; 86900; 86901; 96374; 96376; 99282; 99284; J1170; Q9967

== ENCOUNTER 2022-12-04 10:05 | Outpatient (CLI) | payer MEDICARE, MEDICAID | END 2022-12-04 23:59 | disposition critical access hospital (66) | LOC: EMS 10:05 | DX: R10.31 Right lower quadrant pain (principal); R10.32 Left lower quadrant pain; M54.50 Low back pain, unspecified; R19.8 Other specified symptoms and signs involving the digestive system and abdomen | CPT/HCPCS: A0425; A0427 ==